=== PATIENT | female | born 1995 | race Caucasian/White ===

== ENCOUNTER 2019-07-05 10:40 | Outpatient (CLI) | payer OTHER, SELFPAY ==
--- NOTE | ~2019-07-05 | MR_ITS ---
EXAMINATION: MR pelvis wo/w con DATE: 07/05/2019 12:46 INDICATION: Severe pelvic pain. TECHNIQUE: Magnetic resonance imaging (MRI) of the pelvis was performed without and with 20 minus Mul tiHance intravenous contrast. Sequences included coronal and axial T2-weighted FS FSE, axial T1-weigh kush FS FSE, axial LAVA, coronal FS FIESTA, coronal LAVA-flex, axial T2-weighted FSE, axial dual-echo T1-weighted FSPGR, axial FS FIESTA, axial DWI, and small dgsab-mf-ustn sagittal, coronal, and axial T 2-weighted FSE. Postcontrast sequences included coronal LAVA-flex and a time course of axial LAVA. COMPARISON: CT abdomen and pelvis 09/15/2017 FINDINGS: The uterus and ovaries are normal. There are no dilated loops of bowel. There are no pathologically e nlarged lymph nodes. There is trace ascites, likely physiologic. IMPRESSION: 1. Normal pelvis. Reviewed, dictated and finalized at location A. IMPRESSION: 1. Normal pelvis.
[2019-07-05 11:50] LABS: Estimated Glomerular Filt Rate > 60
== END 2019-07-05 10:41 | disposition home or self-care (01) ==
LOC: ANHIMG 10:47
PROVIDERS: Visit Provider Obstetrics & Gynecology
DX: R10.2 Pelvic and perineal pain (principal)
CPT/HCPCS: 36415; 72197; A9577

== ENCOUNTER 2019-09-30 16:11 | Emergency (ER) | payer OTHER, SELFPAY ==
--- NOTE | ~2019-09-30 | XR_ITS ---
EXAMINATION: XR shoulder LT min 2V EXAM DATE: 09/30/2019 16:40 INDICATION: Initial encounter following injury, with pain of the left shoulder. Fell off tractor. TECHNIQUE: The following left shoulder projections obtained: frontal projection with internal rotatio n, frontal projection with external rotation, Grashey, and scapular Y view (4+ views). There is no p rior study for comparison. FINDINGS: No evidence of left shoulder rotator cuff calcific tendinosis. Unremarkable left glenohu meral and acromioclavicular joints. There are no acute fractures or dislocations identified. There i s no subcutaneous gas. The soft tissue is unremarkable. There are no radiopaque foreign bodies. IMPRESSION: No acute osseous findings. Reviewed, dictated and finalized at location B. IMPRESSION: No acute osseous findings.
[2019-09-30 16:13] VITALS: RESP 16
--- NOTE | 2019-09-30 17:10 | ED.UPPEXIN ---
HPI - Extremity Injury (Upper) General Chief Complaint: Extremity Injury, Upper Stated Complaint: dislo shoulder Time Seen by Provider: 09/30/19 16:41 Source: patient Mode of arrival: ambulatory Limitations: no limitations History of Present Illness HPI narrative: This is a 24-year-old female that presents the emergency department for left shoulder pain after an injury today. Reports she had her arm up on a wall and slipped and fell forward. Reports that arm was pushed backwards. Reports that she has had pain in the left shoulder. Reports decreased range of motion due to pain. Denies other injuries, numbness or weakness. Related Data Home Medications Medication Instructions Recorded Confirmed duloxetine mg PO 09/30/19 elagolix [Orilissa] mg 09/30/19 fluticasone furoate-vilanterol INHALATION 09/30/19 [Breo Ellipta] pantoprazole PO 09/30/19 Allergies Allergy/AdvReac Type Severity Reaction Status Date / Time No Known Allergies Allergy Verified 09/30/19 16:11 Review of Systems Review of Systems: Narrative: CONSTITUTIONAL: Denies fever MUSCULOSKELETAL: Reports joint pain, and myalgia. NEUROLOGIC: Denies numbness, or weakness. All systems reviewed & are unremarkable except as noted in HPI and below PMFSH Past Medical History Medical History (Updated 09/30/19 @ 17:15 by Stephanie Hdz PA-C) History of asthma History of depression History of endometriosis History of gastroesophageal reflux (GERD) Social History Social History Gender identity (if verbalized by the patient): Female Exam Narrative: Exam Narrative: GENERAL: Well-appearing, well-nourished, and in no acute distress. HEAD: Normocephalic, atraumatic. EYES: EOMI. EXTREMITIES: Decreased active range of motion of the left shoulder due to pain. No edema or obvious deformity. Normal sensation. Normal radial pulses SKIN: Warm, dry, no rash. NEURO: No focal deficits. Alert and oriented x3. PSYCH: Normal mood and affect Course Vital Signs Vital signs: Vital Signs Respiratory Rate 16 09/30/19 16:13 Respiratory Rate 16 09/30/19 16:13 MDM - Extremity Injury (Upper) MDM Narrative Medical decision making narrative: Patient presents the emergency department for left shoulder pain after an injury today. Left shoulder x-rays without acute findings. Patient was instructed to rest, ice and take xynt-zlm-evuxexp pain medication as needed. She is to follow-up with orthopedics. She was given warnings to return to the ER Imaging Data Radiologist's impression: ITS Impressions Shoulder X-Ray 09/30/19 16:42 IMPRESSION: No acute osseous findings. Critical Care Time Critical Care Time Critical Care Time: No Discharge Plan Discharge Clinical Impression: Acute pain of left shoulder Patient Disposition: Home, Self-Care Condition: Stable Instructions: Shoulder Sprain (ED) Additional Instructions: Return to the emergency department if you experience fever, redness and swelling of your arm, or any other symptoms that are concerning to you Rest. Ice to the area. Zwbb-cvo-vyixhyl pain medication as needed. Do gentle range of motion exercises with the shoulder daily so you do not get stiff Follow-up with orthopedics Prescriptions: No Action pantoprazole 40 mg tablet,delayed release (DR/EC) PO RF: 0 duloxetine 30 mg capsule,delayed release(DR/EC) PO RF: 0 Breo Ellipta 100-25 mcg/dose blister with device INHALATION RF: 0 Orilissa 150 mg tablet RF: 0 Follow-up/Referrals: Chivo Sanabria MD [Physician] - 1 Week PHYSICIAN,FIRE ASSISTANT [Primary Care Provider] -
== END 2019-09-30 17:39 | disposition home or self-care (01) ==
PROVIDERS: Emergency Provider Emergency Medicine
DX: M25.512 Pain in left shoulder (principal); J45.909 Unspecified asthma, uncomplicated; F32.9 Major depressive disorder, single episode, unspecified; K21.9 Gastro-esophageal reflux disease without esophagitis
CPT/HCPCS: 73030; 99283; A4565

== ENCOUNTER → 2021-02-10 11:27 | Outpatient (CLI) | payer OTHER, SELFPAY ==
--- NOTE | ~2021-02-10 | CT_ITS ---
EXAMINATION: CT abdomen pelvis wo/w con DATE: 02/10/2021 12:04 INDICATION: Hematuria TECHNIQUE: Computed tomography (CT) of the abdomen and pelvis was performed without and with 130 cc O mnipaque 350 intravenous contrast. The dose-length product was 2317.11 mGy-cm. Automated exposure con trol and iterative reconstruction technique were employed. COMPARISON: CT dated 09/15/2017. FINDINGS: There is calcified granuloma left lower lobe. Otherwise, lung bases are unremarkable. Heart size normal. No significant pleural or pericardial effusion. There is a fat-containing umbilical her tobin. No renal stones or hydronephrosis. Fatty infiltration of the liver. The spleen, pancreas, adrenal glands and kidneys are unremarkable. Gallbladder is present. There is a 3.9 cm right ovarian cyst. Ureters are normal in course and caliber. Bladder is decompressed, althou gh unremarkable. Nonobstructive bowel gas pattern. No evidence for diverticulitis. IMPRESSION: 1. Right ovarian cyst measuring 3.9 cm. 2: Hepatic steatosis. Reviewed, dictated and finalized at location A. RANCE OFFICE SUPERVISOR
== END ==
PROVIDERS: PCP Physician Assistant Medical; Visit Provider Obstetrics & Gynecology
DX: R31.9 Hematuria, unspecified (principal); N83.201 Unspecified ovarian cyst, right side; K76.0 Fatty (change of) liver, not elsewhere classified
CPT/HCPCS: 74178; Q9967

== ENCOUNTER → 2021-02-16 02:15 | Outpatient (CLI) | payer OTHER, SELFPAY ==
[2021-02-16 19:35] LABS: SARS-CoV-2 RNA PCR Negative
== END ==
PROVIDERS: PCP Physician Assistant Medical; Visit Provider Obstetrics & Gynecology
DX: Z01.812 Encounter for preprocedural laboratory examination (principal); Z20.822 Contact with and (suspected) exposure to COVID-19
CPT/HCPCS: C9803; U0003; U0005

== ENCOUNTER 2021-02-16 08:36 | Outpatient (CLI) | payer OTHER, SELFPAY | END 2021-02-16 08:37 | disposition home or self-care (01) | LOC: ANHSURGERY 08:40 | PROVIDERS: PCP Physician Assistant Medical; Visit Provider Obstetrics & Gynecology | DX: R10.2 Pelvic and perineal pain (principal) | CPT/HCPCS: 36415; 86850; 86900; 86901 ==

== ENCOUNTER 2021-02-19 02:01 | Day surgery (SDC) | payer OTHER, SELFPAY ==
[2021-02-15 14:34] VITALS: BMI 41.6
--- NOTE | 2021-02-15 14:49 | PC.NURSE ---
Report to the Outpatient Waiting Room, entrance under the green pavilion located off [facility], at time 9:30 on date 02/19/21. OR Time: 11:30. - You and your visitor will be asked a series of questions to screen for COVID 19 for your protection. - A mask is required within the hospital. - Only one visitor is allowed at this time. Patient visitors will be guided where to wait when not with patient. Preoperative COVID Testing Requirements: No COVID Test needed if: (proof is required; if not received patient will have Rapid Test prior to entry) - Patient has received COVID Vaccine at least 14 days prior to procedure date or - Patient has positive COVID test result within last 90 days of surgery date. COVID Test needed if above criteria is not met If not COVID vaccinated a COVID test must be conducted within 72 hours of surgery and patient is asked to isolate self from time of testing until procedure. You will go to the [facility] for your COVID testing. The [facility] is located at the corner of [address] [facility]. COVID TEST 02/16 AT 8:35 You will only be called if COVID results are positive and your surgeon may reschedule your elective surgery date. Patients may have clear liquids (water, carbonated beverages, clear teas, apple juice) until 3 hours prior to surgery with a maximum of 20 ounces. - No food from midnight until time of surgery - Infants may have breast milk until 4 hours before surgery, infant formula 6 hours prior to surgery. - Children will be allowed to drink immediately following surgery. If applicable, please bring a bottle or sippy cup to assist with drinking. Juice, water, soda, and popsicles are readily available. For infants on formula, please bring formula the day of surgery. Pacifiers are allowed. Take the following medications with a SIP of water the morning of surgery: N/A Medications to discontinue per physician: N/A Date to take last dose: N/A Please no make-up, nail lithuanian, hairspray, perfume, deodorant, or body powder the day of surgery. No jewelry (including any body piercings) or valuables the day of surgery, leave them at home. Please take a shower or bath the night before, or the morning of, surgery with an antibacterial soap. Wear comfortable, loose fitting clothing. Children are encouraged to wear pajamas. - Jewelry must be removed prior to entering the operating room. Rings and piercings that are not removed may be cut off. - The hospital will not accept responsibility for valuables. - Please leave all valuables, including medications, at home the day of surgery. If you are going home after surgery, a licensed tow car driver must drive you home. - NO public transportation without another adult. - We recommend that an adult stay with you for 24 hours following discharge. - We also recommend that you do not drive, make important decision, drink alcoholic beverages, or take any drugs that were not prescribed by your health care provider for at least 24 hours after your discharge time. For Pediatric surgeries, we recommend two adults accompany the child home (only one inside the building at this time). Follow any additional instructions given to you from your surgeon. Telephone instructions given to VERONA LOMELI and asked if any additional questions and then verbalized understanding. Patient advised to call surgeon office or pre surgery nurse liaison [phone] if any additional questions.
--- NOTE | 2021-02-17 09:45 | PM.IMHP ---
H&P: HPI History of Present Illness Date/Time: 02/17/21 09:45 25-year-old 0 admitted for laparoscopic right cystectomy secondary to severe pelvic pain and right ovarian cyst. The patient has history of endometriosis. She has had pain discomfort and dyspareunia. Ultrasound shows a right ovarian cyst. Hormonal manipulation has not been helpful. Risks and benefits reviewed in full Chief Complaint: Pelvic pain and right ovarian cyst Review of Systems Review of Systems: All systems reviewed & are unremarkable except as noted in HPI and below PMFSH Past Medical History Medical History History of asthma History of depression History of endometriosis History of gastroesophageal reflux (GERD) Social History Social History Smoking status: Never smoker Alcohol intake: never Substance use: current Substance use type: marijuana Other substance usage details: THC PEN AT NIGHT Last use: 02/14/21 Gender identity (if verbalized by the patient): Female Spiritual care concerns: No Meds Home Medications and Allergies Home Medications Medication Instructions Recorded Confirmed Type pantoprazole 40 mg PO DAILY 09/30/19 02/15/21 History cetirizine [Zyrtec] 10 mg PO DAILY 02/15/21 02/15/21 History citalopram 20 mg PO HS 02/15/21 02/15/21 History Allergies Allergy/AdvReac Type Severity Reaction Status Date / Time No Known Allergies Allergy Verified 02/15/21 14:33 Exam Const: General: no acute distress Eyes: General: appearance normal, both eyes and all related structures Neck: Neck: supple and no JVD Thyroid: thyroid normal Resp: Effort & Inspection: normal respiratory effort Auscultation: clear to auscultation bilaterally Cardio: Rate: regular rate Rhythm: regular rhythm GI: Inspection: non-distended GI Palp: Yes Soft to palpation, No Tenderness to palpation present (GI) and No Guarding due to palpation present (GI) Auscultation: normal bowel sounds : External Female Exam: normal external appearance Speculum Exam - Vagina: normal appearance of the vagina Speculum Exam - Cervix: Cervical os closed Bimanual exam- vagina & uterus: uterine mobility normal Bimanual Exam- Adnexa, other: adnexae mobile and Adnexal mass present on the right tender Skin: General skin exam: no rashes or lesions noted Extrem: General: normal to inspection and no edema Psych: Mental Status: mental status grossly normal Affect: normal affect Assessment and Plan Additional Plan Impression: Right ovarian cyst with severe pain Plan: Laparoscopic right ovarian cystectomy
[2021-02-19] VITALS (11 sets, daily range): BP systolic 125–148; BP diastolic 6–84; PULSE 71–103; RESP 14–20; TEMP 36.3; O2SAT 95–100
--- NOTE | 2021-02-19 07:14 | WPDHPUPDATE1 ---
History and Physical Update Update Date/Time: 02/19/21 07:14 History and Physical has been reviewed, including an updated exam of the patient. There are NO changes in the patient's condition. Risks, benefits, and alternatives have been discussed and questions answered. Patient agrees to proceed with procedure.
[2021-02-19] MEDS: SCOPOLAMINE 1.5 MG PATCH TRANSDERM (10:00)
[2021-02-19] MEDS: ACETAMINOPHEN 500 MG TABLET 1000 MG PO (10:01)
[2021-02-19] MEDS: LACTATED RINGERS 1,000 ML 30 ML IV CONT ×2 (10:07→12:30)
[2021-02-19] MEDS: KETOROLAC 15 MG/ML VIAL (*BKC) IV PUSH (10:08)
--- NOTE | 2021-02-19 10:14 | P.PNAN_ITS ---
Anes - Initial Pre Proc Eval Procedure: Operation Date: 02/19/21 11:30 Proposed Procedures p Laparoscopic Right Ovarian Cystectomy - Ariel Dave MD Date/Time: 02/19/21 10:14 Surgeon: Ariel Dave MD Pre Op Diagnosis: pelvic pain, right ovarian cyst Patient Data Age: 25 Gender: F Height: 1.73 m Weight: 122.4 kg Allergies Allergy/AdvReac Type Severity Reaction Status Date / Time No Known Allergies Allergy Verified 02/19/21 09:52 Home Medications Medication Instructions Recorded Confirmed Type pantoprazole 40 mg PO DAILY 09/30/19 02/19/21 History cetirizine [Zyrtec] 10 mg PO DAILY 02/15/21 02/19/21 History citalopram 20 mg PO HS 02/15/21 02/19/21 History hydrocodone-acetaminophen 1 tablet PO Q4H PRN #30 tablet 02/19/21 Rx Patient hx anesthesia problems: none Family hx anesthesia problems: none Results Review: All pre-operative results and documents have been reviewed as part of the pre-operative evaluation. [facility] Past Medical History Medical History (Updated 02/19/21 @ 10:14 by Ariel Dhaliwal MD) History of asthma History of depression History of endometriosis History of gastroesophageal reflux (GERD) Morbid obesity Surgical History Surgical History (Updated 02/19/21 @ 10:14 by Ariel Dhaliwal MD) H/O laparoscopy Social History Social History Smoking status: Never smoker Alcohol intake: never Substance use: current Substance use type: marijuana Other substance usage details: THC PEN AT NIGHT Last use: 02/14/21 Living arrangements: with family Gender identity (if verbalized by the patient): Female Spiritual care concerns: No Anes - Eval Final PreProcedure Day of Procedure 02/19/21 10:14 Patient weight: morbidly obese Heart: regular rate and rhythm Lungs: clear to auscultation Airway: Mallampati scale class II Neurological: alert and oriented Last oral intake: >/= 8 hours ASA classification: III Emergent: no Anesthetic plan: proceed Anesthesia type and monitoring: general ETT and standard monitoring Results Review: All pre-operative results and documents have been reviewed as part of the pre-operative evaluation. Informed Consent: The patient's anesthetic plan and its attendant risks and benefits were discussed with the patient/family/POA. Questions were solicited and answers provided to the satisfaction of the patient/family/POA.
--- NOTE | 2021-02-19 12:28 | W.PM.PROC2 ---
Procedure Note - Detailed Date of Procedure 02/19/21 Pre-op Diagnosis pelvic pain, right ovarian cyst Post-op Diagnosis same Procedure Performed Laparoscopic destruction of right ovarian cyst/lysis of adhesions Surgeon Ariel Dave MD Anesthesia general Indications A 25-year-old female with pelvic pain and right ovarian cyst on imaging Findings Pelvic adhesions. Adhesions from the uterus to the cul-de-sac. Moderate size right ovarian cyst benign in nature. Right ovary was adherent to ovarian fossa as was the left ovary. Description of Procedure The patient was prepped draped in the normal sterile fashion placed in the dorsal lithotomy position. Under excellent general trach anesthesia weighted speculum placed in posterior fornix vagina. Anterior lip of the cervix grasped with single-tooth tenaculum and the Burk's cannula inserted attached to the single-tooth. The bladder was emptied of clear urine and the weighted speculum removed. The gloves were changed An infraumbilical incision made the Veress needle passed in the abdomen. The abdomen filled with CO2 gas to 15mm Hg the 5mm trocar advanced in the abdomen the downside visualized with no injury seen. Patient placed in Trendelenburg and a suprapubic incision made. The 5mm trocar advanced under direct visualization assuring no injury. Adhesions were seen using sharp dissection this was adhesions were sharply dissected. A large right ovarian cyst was seen. This was opened in linear fashion and drained of clear fluid that ovary was adherent and the and sharp dissection was undertaken to loosen this from the ovarian fossa. Irrigation undertaken to the left ovary was within normal limits but was adherent to the left ovarian fossa and this was sharply dissected and the copious irrigation was undertaken until excellent hemostasis was seen. The remainder of the procedure was unremarkable. Lower site removed the gas removed from the abdomen. The upper site removed incisions closed with 4 Monocryl glue. The patient was taken to recovery in satisfactory condition. All sponge, needle, instrument counts were correct. There were no immediate complications Estimated Blood Loss 5 Drains No Packing No Pathology none sent Complications No immediate complications Condition stable Disposition PACU
[2021-02-19] MEDS: fentaNYL CITRATE INJ (*CRX) 100 MCG/2 ML VIAL 25 MCG IV PUSH ×6 (12:42→13:58)
[2021-02-19] MEDS: ONDANSETRON INJ 4 MG/2 ML VIAL IV PUSH (13:23)
[2021-02-19] MEDS: diphenhydrAMINE HCl INJ 50 MG/ML VIAL 25 MG IV PUSH ×2 (13:34→14:05)
[2021-02-19] MEDS: oxyCODONE HCL (*CRX) 5 MG TAB IR PO (14:33)
== END 2021-02-19 15:12 | disposition home or self-care (01) ==
PROVIDERS: PCP Physician Assistant Medical; Visit Provider Obstetrics & Gynecology
PROC: (CPT 49320; principal; 2021-02-19 11:30)
DX: N83.201 Unspecified ovarian cyst, right side (principal); K66.0 Peritoneal adhesions (postprocedural) (postinfection); R10.2 Pelvic and perineal pain; J45.909 Unspecified asthma, uncomplicated; F32.9 Major depressive disorder, single episode, unspecified; N80.9 Endometriosis, unspecified; K21.9 Gastro-esophageal reflux disease without esophagitis; F12.90 Cannabis use, unspecified, uncomplicated; E66.01 Morbid (severe) obesity due to excess calories; Z68.41 Body mass index [BMI] 40.0-44.9, adult; N94.10 Unspecified dyspareunia
CPT/HCPCS: 58662; 36415; 86850; 86900; 86901; A9270; C9803; J0330; J1100; J1200; J1885; J2250; J2405; J2704; J3010; J7120; U0003; U0005

== ENCOUNTER 2021-05-21 08:36 | Outpatient (CLI) | payer OTHER, SELFPAY ==
--- NOTE | ~2021-05-21 | US_ITS ---
EXAMINATION: US abdomen limited DATE: 05/21/2021 09:22 INDICATION: Right upper quadrant pain TECHNIQUE: Multiple grayscale and Doppler ultrasound images of the abdomen were obtained. COMPARISON: CT, 02/11/2020 FINDINGS: Bowel gas obscures visualization of the pancreas. The visualized portions of the pancreas a re unremarkable. The liver demonstrates increased echogenicity, heterogenous echotexture, and decreas ed through transmission. No surface nodularity. Normal hepatopetal flow in the main portal vein. Ston es are present in the nondistended gallbladder. There is no pericholecystic fluid or gallbladder wall thickening. The normal common bile duct measures 4 mm. There was no sonographic Robertson sign. IMPRESSION: 1. Cholelithiasis without evidence of cholecystitis. Reviewed, dictated and finalized at location A. GRAPHY TECHNOLOGIST
== END 2021-05-21 08:37 | disposition home or self-care (01) ==
LOC: ANHIMG 08:39
PROVIDERS: PCP Physician Assistant Medical
DX: R10.10 Upper abdominal pain, unspecified (principal); K80.20 Calculus of gallbladder without cholecystitis without obstruction
CPT/HCPCS: 76705

== ENCOUNTER 2021-10-05 14:46 | Outpatient (CLI) | payer OTHER, SELFPAY ==
--- NOTE | 2021-10-05 | ECG_ITS ---
Measurements Intervals [place] Rate: 64 P: -1 [place]: 146 QRS: 17 QRSD: 98 T: -15 QT: 412 QTc: 426 Interpretive Statements SINUS RHYTHM BORDERLINE ST-T WAVE ABNORMALITY- INFERIOR LEADS BORDERLINE ECG Electronically Signed On 10-05-2021 15:09:51 CDT by Rachid Haley D.O.
== END 2021-10-05 14:47 | disposition home or self-care (01) ==
LOC: ANHCARD 14:48
PROVIDERS: PCP Physician Assistant Medical; Visit Provider Obstetrics & Gynecology
DX: R55 Syncope and collapse (principal)
CPT/HCPCS: 93005

== ENCOUNTER 2021-11-26 01:42 | Day surgery (SDC) | payer OTHER, SELFPAY ==
[2021-11-23 13:10] VITALS: BMI 26.4
--- NOTE | 2021-11-23 13:22 | PC.NURSE ---
Report to the Outpatient Waiting Room, entrance under the green pavilion located off [facility], at time 1100 on date 11/26/21. OR Time: 1300. - You and your visitor will be asked to self-screen and do not enter if you have any COVID symptoms. - Only one visitor and NO children visitors are allowed at this time. - The patient visitor is requested to leave or wait in car when not with patient due to restrictions. - A mask is required within the hospital. Patients may have clear liquids (water, carbonated beverages, clear teas, apple juice) until 3 hours prior to surgery with a maximum of 20 ounces. - No food from midnight until time of surgery Take the following medications with a SIP of water the morning of surgery: PAIN PILL (IF NEEDED) Medications to discontinue per physician: N/A Date to take last dose: N/A Please no make-up, nail israeli, hairspray, perfume, deodorant, or body powder the day of surgery. No jewelry (including any body piercings) or valuables the day of surgery, leave them at home. Please take a shower or bath the night before, or the morning of, surgery with an antibacterial soap. Wear comfortable, loose fitting clothing. - Jewelry must be removed prior to entering the operating room. Rings and piercings that are not removed may be cut off. - The hospital will not accept responsibility for valuables. - Please leave all valuables, including medications, at home the day of surgery. If you are going home after surgery, a licensed cpr ambulance driver must drive you home. - NO public transportation without another adult. - We recommend that an adult stay with you for 24 hours following discharge. - We also recommend that you do not drive, make important decision, drink alcoholic beverages, or take any drugs that were not prescribed by your health care provider for at least 24 hours after your discharge time. Follow any additional instructions given to you from your surgeon. If you or anyone in your household have experienced Covid symptoms in the past week, please notify your surgeon or the nurse liaison at the phone number below for possible testing. Telephone instructions given to PT - VERONA LOMELI and asked if any additional questions and then verbalized understanding. Patient advised to call surgeon office or pre surgery nurse liaison [phone] if any additional questions.
--- NOTE | 2021-11-25 11:31 | P.PNAN_ITS ---
Anes - Initial Pre Proc Eval Procedure: Operation Date: 11/26/21 13:00 Proposed Procedures p Diagnostic Laparoscopy - Ariel Ledbetter MD Date/Time: 11/25/21 11:31 Surgeon: Ariel Ledbetter MD Pre Op Diagnosis: pain Patient Data Age: 26 Gender: F Height: 1.73 m Weight: 78.93 kg Allergies Allergy/AdvReac Type Severity Reaction Status Date / Time adhesive tape AdvReac Mild Itching Verified 11/26/21 11:24 Home Medications Medication Instructions Recorded Confirmed Type cetirizine 10 mg tablet (Zyrtec) 10 mg PO DAILY 02/15/21 11/26/21 History citalopram 20 mg tablet 20 mg PO HS 02/15/21 11/26/21 History hydrocodone 5 mg-acetaminophen 325 1 tablet PO Q4H PRN pain #30 tabs 02/19/21 11/23/21 Rx mg tablet etonogestrel 0.12 mg-ethinyl 1 vag ring vaginal ONCE 11/23/21 11/23/21 History estradiol 0.015 mg/24 hr vaginal ring pantoprazole 20 mg tablet,delayed 20 mg PO DAILY 11/23/21 11/26/21 History release hydrocodone 5 mg-acetaminophen 325 1 tablet PO Q4H PRN pain #30 tabs 11/26/21 Rx mg tablet Patient hx anesthesia problems: post op nausea/vomiting Family hx anesthesia problems: none Results Review: All pre-operative results and documents have been reviewed as part of the pre- operative evaluation. [facility] Past Medical History Medical History History of asthma History of depression History of endometriosis History of gastroesophageal reflux (GERD) Morbid obesity Surgical History Surgical History H/O laparoscopy History of sleeve gastrectomy History of tonsillectomy Social History Social History Smoking status: Never smoker Alcohol intake: never Substance use: current Substance use type: marijuana Other substance usage details: THC PEN AT NIGHT Last use: 02/14/21 Living arrangements: with family Additional living arrangements comments: [facility] Gender identity (if verbalized by the patient): Female Spiritual care concerns: No Anes - Eval Final PreProcedure Day of Procedure 11/25/21 11:31 Patient weight: overweight Heart: regular rate and rhythm Lungs: clear to auscultation Airway: Mallampati scale class 1 Neurological: alert and oriented Last oral intake: >/= 8 hours ASA classification: III Emergent: no Anesthetic plan: proceed Anesthesia type and monitoring: general ETT and standard monitoring Results Review: All pre-operative results and documents have been reviewed as part of the pre- operative evaluation. Informed Consent: The patient's anesthetic plan and its attendant risks and benefits were discussed with the patient/family/POA. Questions were solicited and answers provided to the satisfaction of the patient/family/POA.
[2021-11-26] VITALS (11 sets, daily range): BP systolic 110–125; BP diastolic 55–71; PULSE 59–93; RESP 14–24; TEMP 36.2–36.5; O2SAT 97–100
--- NOTE | 2021-11-26 04:41 | PM.IMHP ---
H&P: HPI History of Present Illness Date/Time: 11/26/21 04:41 Chief Complaint: pelvic pain Narrative: a 26-year-old female with known endometriosis admitted for diagnostic laparoscopy destruction of endometriosis. [facility] Past Medical History Medical History History of asthma History of depression History of endometriosis History of gastroesophageal reflux (GERD) Morbid obesity Surgical History Surgical History H/O laparoscopy History of sleeve gastrectomy History of tonsillectomy Social History Social History Smoking status: Never smoker Alcohol intake: never Substance use: current Substance use type: marijuana Other substance usage details: THC PEN AT NIGHT Last use: 02/14/21 Living arrangements: with family Additional living arrangements comments: [facility] Gender identity (if verbalized by the patient): Female Spiritual care concerns: No Meds Home Medications and Allergies Home Medications Medication Instructions Recorded Confirmed Type cetirizine 10 mg tablet (Zyrtec) 10 mg PO DAILY 02/15/21 11/23/21 History citalopram 20 mg tablet 20 mg PO HS 02/15/21 11/23/21 History hydrocodone 5 mg-acetaminophen 325 1 tablet PO Q4H PRN pain #30 tabs 02/19/21 11/23/21 Rx mg tablet etonogestrel 0.12 mg-ethinyl 1 vag ring vaginal ONCE 11/23/21 11/23/21 History estradiol 0.015 mg/24 hr vaginal ring pantoprazole 20 mg tablet,delayed 20 mg PO DAILY 11/23/21 11/23/21 History release Allergies Allergy/AdvReac Type Severity Reaction Status Date / Time adhesive tape AdvReac Itching Verified 11/23/21 13:18 Exam Const: General: cooperative, healthy appearing and comfortable Nutritional Appearance: average body habitus Limitations: no limitations HENMT: Head: normal to inspection Chest: Chest palpation & inspection: normal inspection of the chest Resp: Effort & Inspection: normal respiratory effort Cardio: Rate: regular rate Rhythm: regular rhythm Heart sounds: S1 normal heart sound present and S2 normal heart sound present GI: Inspection: normal to inspection : External Female Exam: normal external appearance Speculum Exam - Vagina: normal appearance of the vagina Speculum Exam - Cervix: normal appearance of the cervix and Cervical tenderness present Bimanual exam- vagina & uterus: Uterine tenderness Bimanual Exam- Adnexa, other: tender Assessment and Plan Assessment and plan (1) Pelvic pain: Code(s): R10.2 - Pelvic and perineal pain Status: Acute Plan diagnostic laparoscopy
[2021-11-26] MEDS: LACTATED RINGERS 1,000 ML 30 ML IV CONT ×2 (11:35→13:58)
[2021-11-26] MEDS: ACETAMINOPHEN 500 MG TABLET 1000 MG PO (11:47)
[2021-11-26] MEDS: SCOPOLAMINE 1.5 MG PATCH TRANSDERM (11:49)
[2021-11-26] MEDS: KETOROLAC 15 MG/ML VIAL (*BKC) IV PUSH (11:50)
--- NOTE | 2021-11-26 12:54 | WPDHPUPDATE1 ---
History and Physical Update Update Date/Time: 11/26/21 12:54 History and Physical has been reviewed, including an updated exam of the patient. There are NO changes in the patient's condition. Risks, benefits, and alternatives have been discussed and questions answered. Patient agrees to proceed with procedure.
--- NOTE | 2021-11-26 12:55 | WPDHPUPDATE1 ---
History and Physical Update Update Date/Time: 11/26/21 12:55 History and Physical has been reviewed, including an updated exam of the patient. There are NO changes in the patient's condition. Risks, benefits, and alternatives have been discussed and questions answered. Patient agrees to proceed with procedure.
--- NOTE | 2021-11-26 13:37 | P.OP_ITS ---
Procedure Note - Detailed Date of Procedure 11/26/21 Pre-op Diagnosis pain Post-op Diagnosis Other (Endometriosis and adhesions) Procedure Performed laparoscopic destruction of endometriosis and lysis of adhesions Surgeon Ariel Ledbetter MD Anesthesia General Indications this 26-year-old female with severe pelvic pain Findings normal-appearing uterus left ovary and tube. Right ovary was markedly adherent to the ovarian fossa with a small amount of endometriosis present causing this thick adhesion. There uterosacral ligament contained powder burn endometriosis. There is a small amount of endometriosis on the left uterosacral ligament Description of Procedure patient was prepped draped in the normal sterile fashion placed in the dorsal lithotomy position. Under excellent general trach anesthesia weighted speculum placed in posterior fornix vagina. Anterior lip of the cervix grasped with a single-tooth tenaculum and the Burk's cannula inserted attached to the single- tooth to be used later for uterine manipulation. After emptying the bladder of clear urine the weighted speculum was removed. Gloves were changed. An infraumbilical incision made the Veress needle passed in the abdomen. Abdomen filled with CO2 gas 15mmHg. The 5mm trocar advanced under direct visualization assuring no injury. The patient placed in Trendelenburg and a suprapubic incision made. The 5mm trocar advanced under direct visualization injury. Incision the right lower quadrant incision was made and the 5mm trocar advanced under direct visualization assuring no injury. The above findings were seen irrigation was undertaken the area of endometriosis on the you right uterosacral was cauterized at 35 w per 2nd. The right ovary was markedly adherent to the ovarian fossa holding with 1 hand and using monopolar cautery was brought along the edge of the ovary to release it and the endometriosis on that ovary was destroyed with monopolar cautery. Irrigation undertaken to clear the remainder of the pelvis appeared within normal limits. The lower site removed. The gas removed from the abdomen. The upper site removed. The incisions closed with 4 Monocryl and glue. Patient went to recovery in satisfactory condition. All sponge, needle, instrument counts were correct. There were no immediate complications Estimated Blood Loss 5 Drains No Packing No Pathology None sent Complications No immediate complications Condition Stable Disposition PACU
[2021-11-26] MEDS: fentaNYL CITRATE INJ (*CRX) 100 MCG/2 ML VIAL 25 MCG IV PUSH ×8 (13:53→14:30)
[2021-11-26] MEDS: ONDANSETRON INJ 4 MG/2 ML VIAL IV PUSH (14:17)
[2021-11-26] MEDS: diphenhydrAMINE HCl INJ 50 MG/ML VIAL 25 MG IV PUSH (14:47)
[2021-11-26] MEDS: HALOPERIDOL LACTATE 5 MG/ML VIAL 1 MG IV PUSH (15:23)
== END 2021-11-26 16:15 | disposition home or self-care (01) ==
PROVIDERS: PCP Physician Assistant Medical; Visit Provider Obstetrics & Gynecology
PROC: (CPT 49320; principal; 2021-11-26 13:00)
DX: R10.2 Pelvic and perineal pain (principal); N80.1 Endometriosis of ovary; N80.3 Endometriosis of pelvic peritoneum; F32.A Depression, unspecified; J45.909 Unspecified asthma, uncomplicated; K21.9 Gastro-esophageal reflux disease without esophagitis; F12.90 Cannabis use, unspecified, uncomplicated
CPT/HCPCS: 58662; 36415; 86850; 86900; 86901; A9270; J0330; J1200; J1630; J1885; J2250; J2270; J2405; J2704; J3010; J7120

== ENCOUNTER 2022-05-24 09:15 | Outpatient (RCR) | payer OTHER, SELFPAY ==
--- NOTE | 2022-03-03 15:58 | PTOPDC ---
Assessment and note entered by Merlin Sommers, PT Evaluation Information Assessment Status Evaluation Diagnosis dizziness and giddiness Onset September/October of this year Subjective Information Patient reports she is dizzy constantly and has been since November. She reports having loss of consciousness a few weeks before her symptoms started. She has not had any falls, but does report close calls. She is on Meclizine which she takes 1 time a day and that helps she reports. She is a side sleeper and reports symptoms are worse when turning head from side to side, or up and down, or anything with quick movements. Along with dizziness she has ringing in her ears, headaches, migraines, nausea/vomiting. Denies any recent ear infections and has recently seen an ENT doctor. Reported Pain Level Pain Score 3: Self Report Assessment PT Clinical Summary Odessa is a 26 year old female coming into the clinic with dizziness. She reports issues with quick turns especially side to side and up and down, has had close calls on falls. Along with dizziness is having migraines and ringing in the ears. Unable to elicit nystagmus with test, but did have increased dizziness with VOR, vertical and horizontal turns with walking, along with eyes closed balance issues. Patient should benefit from skilled physical therapy to work on habituation exercises to improve vestibular and visual coordination along with manual therapy if needed for acute BPPV episodes. Plan of Care Interventions Manual Therapy,Neuro Re-education,Therapeutic Activities,Therapeutic Exercise PT Services Indicated Yes Treatment Frequency and 1x/wk for 4 weeks with PRN for Jameson maneuvers Duration
--- NOTE | 2022-03-16 09:33 | PCPTNOTE ---
pt did not show for today's appt, called pt and left a voice mail message, with reminder of next appt;
--- NOTE | 2022-04-25 09:57 | PCPTNOTE ---
Patient called & cancelled scheduled appointment this date due to not feeling well.
--- NOTE | 2022-05-03 09:52 | PTOPPROG ---
Assessment and note entered by Valerie Shaw, PT Evaluation Information Assessment Status Progress Diagnosis dizziness and giddiness Onset September/October of this year Subjective Information Odessa reports: was getting little better, then flew last weekend- head and ears hurt whole time, vomiting and super tired and dizzy since then; right now, head feels like little headache across forehead synagogue-synagogue; room is not spinning, just fluttering; had migraine last week for several days, then lessened up; after last session, had maneuver and was a little better, then flew and was worse; increase s/s: moving too fast lying down to sitting up and standing up too fast; bright lights and bright with snow reflection; pain rating of 0-8/10 headache/migraine. Assessment PT Clinical Summary Odessa has received 5 PT sessions. Compared to the initial evaluation: she continues to have issues with dizziness and headaches/ migraines; with trigger of bright lights; dizziness report has decreased slightly; headache pain rating about the same at worst rating; driving and activity level remains limited due to dizziness and headaches. She continues to have issues with quick head motions and supine/sit /stand transfers. And head motions horizontal and vertical. She has poor neck and shoulder positioning with painful cervical ROM. Goals were not achieved. Continue PT treatment for vestibular rehab and include cervical treatment to address cervicogenic dizziness and migraines as source of dizziness issues. Plan of Care Interventions Electrical Stimulation,Hot Pack/Cold Pack,Manual Therapy,Patient/Caregiver Education,Therapeutic Activities,Therapeutic Exercise,Ultrasound,Other Other Interventions taping PT Services Indicated Yes Treatment Frequency and 2x/wk for 5 weeks Duration These treatments will address the objective and functional deficits as defined above. The patient will be advanced safely and appropriately in order for the patient to progress towards his/her prior level of function. Additional exercises will be introduced and as well as a comprehensive home exercise program upon discharge, if needed, ?to ensure carryover of functional gains achieved in the clinic. This treatment plan has been reviewed and agreement upon by the patient
--- NOTE | 2022-05-13 11:19 | PCPTNOTE ---
Patient called & cancelled scheduled appointment this date due to being sick.
--- NOTE | 2022-05-19 13:41 | PCPTNOTE ---
Patient called & cancelled scheduled appointment this date due to illness.
--- NOTE | 2022-05-26 10:27 | PCPTNOTE ---
Patient called & cancelled scheduled appointment this date due to not being able to make it today.
--- NOTE | 2022-05-27 12:57 | PCPTNOTE ---
This treatment is being continued from visit number [id number]. Please see documentation on both accounts to view progress. Completed interventions, outcomes, and problems have been marked as Inactive to facilitate the copying of the Care plan routine for recurring accounts.
== END 2022-05-27 11:32 | disposition home or self-care (01) ==
LOC: ANHPT 09:15
PROVIDERS: PCP Physician Assistant Medical; Visit Provider Physician Assistant Medical
DX: R42 Dizziness and giddiness (principal)
CPT/HCPCS: 97014; 97110; 97140; 97161; 97530; G0283

== ENCOUNTER 2022-06-10 10:40 | Outpatient (CLI) | payer OTHER, SELFPAY ==
--- NOTE | ~2022-06-10 | MR_ITS ---
MRI of the brain Clinical History: Headache, speech deficit Technique: Axial and sagittal T1-weighted images were acquired. These were followed by axial T2-weigh kush, diffusion weighted, gradient, and FLAIR images. Findings: No abnormal signal seen in the brain parenchyma. No acute infarct, intracranial hemorrhage, or mass lesion. Ventricles and subarachnoid spaces are unremarkable. Orbits are unremarkable. Paranasal sinuses and m astoid air cells are clear. Major intracranial flow voids are intact. Sagittal midline structures are intact. IMPRESSION: Unremarkable exam. Reviewed, dictated and finalized at location M. INSPECTOR IMPRESSION: Unremarkable exam.
== END 2022-06-10 10:41 ==
PROVIDERS: PCP Physician Assistant Medical; Visit Provider Nurse Practitioner Family
DX: R47.9 Unspecified speech disturbances (principal); R42 Dizziness and giddiness; R20.2 Paresthesia of skin; R20.0 Anesthesia of skin; G43.909 Migraine, unspecified, not intractable, without status migrainosus
CPT/HCPCS: 70551

== ENCOUNTER 2022-08-04 12:30 | Outpatient (RCR) | payer OTHER, SELFPAY ==
--- NOTE | 2022-05-27 13:00 | PCPTNOTE ---
This treatment is being continued from visit number [id number]. Please see documentation on both accounts to view progress. Completed interventions, outcomes, and problems have been marked as Inactive to facilitate the copying of the Care plan routine for recurring accounts.
--- NOTE | 2022-06-02 12:32 | PCPTNOTE ---
pt did not show for today's appt; called and left her a message with reminder of next appt;
--- NOTE | 2022-06-07 10:42 | PTOPPROG ---
Assessment and note entered by Valerie Shaw, PT Evaluation Information Assessment Status Progress Diagnosis dizziness and giddiness Onset September/October of this year Subjective Information Odessa reports: dizziness feel like the same, room spinning is the same, not able to relate to anything that changes it; still not driving and still not working; to have phone conference with general sweeney next week; have been going to the chiropractor 2x/wk for neck adjustments; concerned that she is having more tingling in her hands the past few weeks, dropping her phone; and has had 5-6 times of her speech jumbled up like dyslexia; Pain range of 4-8/10 in past week, tight in both sides of neck; pain increase with: cannot think of anything that causes more pain; decrease pain with heat/ice, therapy massage; have headaches from holiness to holiness, had 1 in the past week, onset with loud music; started topamax for migraines 2 weeks ago, which may be helping the headaches; Assessment PT Clinical Summary Odessa has received a total of 10 PT sessions. Compared to the last reevaluation: continues to have dizziness with positional changes and walking with head motions; pain rating at the high rating is the same 8/10 and the low rating is worst, was 0/10 and now 4/10; headaches are less has more tingling in her hands and has had recent incidents of jumbled speech. slight increase in scapular strength and posture correction; She has also been going to the chiropractor for adjustments , discussed with her doing either PT or chiropractor, but not both at once; Odessa agreed to try PT only. Also discussed possible need for further imaging of cervical spine. She has a follow up appt and will discuss with her provider. The PT goals were partially achieved. Continue PT treatment, to further reduce cervical pain and headaches, improve posture and decrease spasms. With progression of HEP. Plan of Care Interventions Electrical Stimulation,Hot Pack/Cold Pack,Manual Therapy,Mechanical Traction,Patient/Caregiver Education,Therapeutic Activities,
--- NOTE | 2022-06-30 15:10 | PCPTNOTE ---
Patient called & cancelled scheduled appointment this date due to not feeling well.
--- NOTE | 2022-07-05 11:58 | PTOPPROG ---
Assessment and note entered by Valerie Shaw, PT Evaluation Information Assessment Status Progress Diagnosis dizziness and giddiness, neck pain Onset of this year Subjective Information Odessa reports: going to see neurologist on July 21; brain MRI did not show anything; feels like she is about the same; is driving some- 2-3 miles ; no longer going to chiropractor; continues to have dizziness every day, comes and goes--spinning , no pattern noted; have not had any tingling in her hands lately; had loss of vision ~ 20 min, few days ago when bending over and cleaning; saw the eye dr and she was told everything looked good and does not need glasses; Assessment PT Clinical Summary Odessa has received a total of 15 PT sessions. Compared to the last reevaluation: neck pain rating at low and high have improved: was 4-8/10 and now 0-5/10; have increased from 1 to 2 headaches/week; she no longer has tingling into her hands; has started driving short distances; posture and scapular strength is about the same-- continues to have rounded posture with forward head; cervical rotation R/L and side bend R/L continue to cause pain; she continues to have dizziness with positional changes and walking with head motions. Odessa has a home exercise program and does have some pain relieft with PT treatments. She has a neurology appointment in few weeks. Continue PT treatments for further pain decrease of neck and additional vestibular rehab. Plan of Care Interventions Hot Pack/Cold Pack,Manual Therapy,Neuro Re- education,Patient/Caregiver Education,Therapeutic Activities,Therapeutic Exercise,Ultrasound,Other Other Interventions taping PT Services Indicated Yes Treatment Frequency and 1-2x/wk for 5 weeks Duration These treatments will address the objective and functional deficits as defined above. The patient will be advanced safely and appropriately in order for the patient to progress towards his/her prior level of function. Additional exercises will be introduced and as well as a comprehensive home exercise program upon discharge, if needed, ?to ensure carryover of functional gains achieved in the clinic. This treatment plan has been reviewed and agreement upon by the patient.
--- NOTE | 2022-07-18 15:22 | PCPTNOTE ---
Patient called & cancelled scheduled appointment this date due to having to go to a .
--- NOTE | 2022-07-20 14:36 | PCPTNOTE ---
Patient called & cancelled scheduled appointment this date due to having a head cold.
--- NOTE | 2022-07-28 13:00 | PCPTNOTE ---
Patient called & cancelled scheduled appointment this date due to not feeling well.
--- NOTE | 2022-08-02 14:21 | PCPTNOTE ---
Patient called & cancelled scheduled appointment this date due to not being able to make it today.
--- NOTE | 2022-08-09 11:59 | PCPTNOTE ---
pt called and canceled reeval due to having a migraine.
--- NOTE | 2022-08-25 15:54 | PCPTNOTE ---
pt did not show for today's reeval; called her and left voice message;
--- NOTE | 2022-09-08 09:12 | PCPTNOTE ---
PHYSICAL THERAPY DISCHARGE 09-08-22 Attending Provider: Tersea Rodriguez PA-C Patient:Odessa Faye Date of :1995 Patient has not returned for any further treatments since 08/04/2022, therefore she will be discharged at this time. The goals were not addressed. Thank you for referring this patient to [facility].
== END 2022-08-29 23:59 | disposition home or self-care (01) ==
LOC: ANHPT 12:30
PROVIDERS: PCP Physician Assistant Medical; Visit Provider Physician Assistant Medical
DX: R42 Dizziness and giddiness (principal)
CPT/HCPCS: 97014; 97110; 97140; 97530; 99199; G0283

== ENCOUNTER 2022-10-11 10:23 | Outpatient (CLI) | payer OTHER, SELFPAY ==
[2022-10-11 11:06] LABS: Hematocrit 40.5 % (37.0-47.0); Hemoglobin 13.2 g/dL (12.0-15.0)
== END 2022-10-11 10:24 | disposition home or self-care (01) ==
LOC: ANHSURGERY 10:31
PROVIDERS: Anesthesiology; PCP Physician Assistant Medical; Visit Provider Obstetrics & Gynecology
DX: Z01.818 Encounter for other preprocedural examination (principal); Z87.42 Personal history of other diseases of the female genital tract; D64.9 Anemia, unspecified
CPT/HCPCS: 36415; 85014; 85018; 86850; 86900; 86901

== ENCOUNTER 2022-10-12 00:16 | Day surgery (SDC) | payer OTHER, SELFPAY ==
[2022-10-07 08:36] VITALS: BMI 26.1
--- NOTE | 2022-10-07 08:42 | PC.NURSE ---
Report to the Outpatient Waiting Room, entrance under the green pavilion located off [facility], at time 6:00 on date 10/12/22. Planned Procedure Time: 7:30. Time changes happen often and if your time is changed the preop area will call you the afternoon before. - You and your visitor will be asked to self-screen and do not enter if you have any COVID symptoms. - A mask is optional within the hospital at this time. Patients may have clear liquids (water, carbonated beverages, clear teas, apple juice) until 3 hours prior to surgery (4:30) with a maximum of 20 ounces. - No food from midnight until time of surgery Take the following medications with a SIP of water the morning of surgery: NONE DO NOT STOP ANY OF YOUR OTHER PRESCRIPTION MEDICATIONS PRIOR TO SURGERY ?EXCEPT THE FOLLOWING Medications to discontinue per physician: VITAMINS/SUPPLEMENTS Date to take last dose: 10/08/22 Please no make-up, nail cambodian, hairspray, perfume, deodorant, or body powder the day of surgery. No jewelry (including any body piercings) or valuables the day of surgery, leave them at home. Please take a shower or bath the night before, or the morning of, surgery with an antibacterial soap. Wear comfortable, loose fitting clothing. - Jewelry must be removed prior to entering the operating room. Rings and piercings that are not removed may be cut off. - The hospital will not accept responsibility for valuables. - Please leave all valuables, including medications, at home the day of surgery. If you are going home after surgery, a licensed minibus driver must drive you home. - NO public transportation without another adult if you receive anesthesia. - We recommend that an adult stay with you for 24 hours following discharge. - We also recommend that you do not drive, make important decision, drink alcoholic beverages, or take any drugs that were not prescribed by your health care provider for at least 24 hours after your discharge time. Follow any additional instructions given to you from your surgeon. If you or anyone in your household have experienced Covid symptoms in the past week, please notify your surgeon or the nurse liaison at the phone number below for possible testing. Telephone instructions given to PT - VERONA LOMELI and asked if any additional questions and then verbalized understanding. Patient advised to call surgeon office or pre surgery nurse liaison [phone] if any additional questions.
--- NOTE | 2022-10-11 05:46 | PM.IMHP ---
H&P: HPI History of Present Illness Date/Time: 10/11/22 05:46 Chief Complaint: pelvic pain with history of endometriosis Narrative: this is a 27-year-old 0 who is admitted for diagnostic laparoscopy secondary to severe pelvic pain. She has a known history of endometriosis. Endometriosis is expected. Risks benefits of laparoscopy reviewed including but not exclusive of , aspiration, bleeding, transfusion, perforation injury to bowel, bladder, ureters, or other internal organs with need for laparotomy. She received the [facility] handout entitled laparoscopy. She had all questions answered and asked to proceed PMFSH Past Medical History Medical History ADD (attention deficit disorder) Anemia History of asthma History of depression History of endometriosis History of gastroesophageal reflux (GERD) History of ovarian cyst Iron deficiency anemia Migraine Morbid obesity Pyloric stenosis Vitamin B12 deficiency Vitamin D deficiency Surgical History Surgical History H/O laparoscopy History of sleeve gastrectomy History of tonsillectomy Social History Social History Smoking status: Never smoker Alcohol intake: current Alcohol use details: VERY RARE Substance use: current Substance use type: marijuana Other substance usage details: THC PEN AT NIGHT for anxiety Last use: 02/14/21 Lack of Transportation: No Lack of Food: Never True Current Housing: I Have Housing Concerned About Future Housing: No Difficulty Paying Gas/Electric Bills: No Difficulty Paying for Meds: No Currently Unemployed: No Education: Associate Degree Difficulty w/ Childcare or Family Care: No Living arrangements: with family Additional living arrangements comments: [facility] Occupation/Education: occupation Gender identity (if verbalized by the patient): Female Spiritual care concerns: No Meds Home Medications and Allergies Home Medications Medication Instructions Recorded Confirmed Type cetirizine 10 mg tablet (Zyrtec) 10 mg PO DAILY PRN Allergy Symptoms 02/15/21 10/07/22 History etonogestrel 0.12 mg-ethinyl 1 vag ring vaginal ONCE 11/23/21 10/07/22 History estradiol 0.015 mg/24 hr vaginal ring cholecalciferol (vitamin D3) 50 50 mcg PO DAILY 02/08/22 10/07/22 History mcg (2,000 unit) capsule cyanocobalamin (vitamin B-12) 500 500 mcg PO DAILY 02/08/22 10/07/22 History mcg chewable tablet multivitamin-minerals no.55 1 tablet PO DAILY 02/08/22 10/07/22 History ferrous sulfate 325 mg (65 mg 325 mg PO BID #180 tabs 04/11/22 10/07/22 Rx iron) tablet (Iron (ferrous sulfate)) pantoprazole 20 mg tablet,delayed 20 mg PO QAM #90 tabs 04/11/22 10/07/22 Rx release meclizine 25 mg tablet 25 mg PO TID PRN dizziness #20 tabs 04/14/22 10/07/22 Rx amitriptyline 50 mg tablet 50 mg PO QHS #90 tabs 07/11/22 10/07/22 Rx citalopram 20 mg tablet 20 mg PO HS #90 tabs 07/11/22 10/07/22 Rx atogepant 60 mg tablet (Qulipta) 60 mg PO DAILY #30 tabs 07/21/22 10/07/22 Rx sumatriptan succinate 100 mg 100 mg PO ONCE PRN migraine 07/21/22 10/07/22 Rx tablet (Imitrex) headache #9 tabs Allergies Allergy/AdvReac Type Severity Reaction Status Date / Time tramadol AdvReac Severe Palpitation Verified 10/07/22 08:34 s adhesive tape AdvReac Mild Itching Verified 10/07/22 08:34 Exam Const: General: cooperative, healthy appearing, comfortable and average body habitus Orientation/consciousness: oriented to person, oriented to place and oriented to time HENMT: Head: normal to inspection Resp: Effort & Inspection: normal respiratory effort Cardio: Rate: regular rate Rhythm: regular rhythm Heart sounds: S1 normal heart sound present and S2 normal heart sound present GI: Inspection: normal to inspection Auscultation: normal bowel sounds
[2022-10-12] VITALS (10 sets, daily range): BP systolic 110–125; BP diastolic 62–76; PULSE 55–94; RESP 12–20; TEMP 36.4–36.9; O2SAT 98–100
--- NOTE | 2022-10-12 05:57 | WPDHPUPDATE1 ---
History and Physical Update Update Date/Time: 10/12/22 05:57 History and Physical has been reviewed, including an updated exam of the patient. There are NO changes in the patient's condition. Risks, benefits, and alternatives have been discussed and questions answered. Patient agrees to proceed with procedure.
[2022-10-12] MEDS: ACETAMINOPHEN 500 MG TABLET 1000 MG PO (06:36)
[2022-10-12] MEDS: LACTATED RINGERS 1,000 ML 30 ML IV CONT ×2 (06:43→09:06)
[2022-10-12] MEDS: KETOROLAC 15 MG/ML VIAL (*BKC) IV PUSH (06:45)
--- NOTE | 2022-10-12 06:48 | WPDANESEPPF ---
Anes - Initial Pre Proc Eval Procedure: Operation Date: 10/12/22 07:30 Proposed Procedures p Diagnostic Laparoscopy - Ariel Ledbetter MD Date/Time: 10/12/22 06:48 Surgeon: Ariel Ledbetter MD Pre Op Diagnosis: Pelvic Pain, Hx of Endomet Patient Data Age: 27 Gender: F Height: 1.73 m Weight: 78 kg Allergies Allergy/AdvReac Type Severity Reaction Status Date / Time tramadol AdvReac Severe Palpitation Verified 10/12/22 06:34 s adhesive tape AdvReac Mild Itching Verified 10/12/22 06:34 Home Medications Medication Instructions Recorded Confirmed Type cetirizine 10 mg tablet (Zyrtec) 10 mg PO DAILY PRN Allergy Symptoms 02/15/21 10/12/22 History etonogestrel 0.12 mg-ethinyl 1 vag ring vaginal ONCE 11/23/21 10/07/22 History estradiol 0.015 mg/24 hr vaginal ring cholecalciferol (vitamin D3) 50 50 mcg PO DAILY 02/08/22 10/12/22 History mcg (2,000 unit) capsule cyanocobalamin (vitamin B-12) 500 500 mcg PO DAILY 02/08/22 10/12/22 History mcg chewable tablet multivitamin-minerals no.55 1 tablet PO DAILY 02/08/22 10/12/22 History ferrous sulfate 325 mg (65 mg 325 mg PO BID #180 tabs 04/11/22 10/12/22 Rx iron) tablet (Iron (ferrous sulfate)) pantoprazole 20 mg tablet,delayed 20 mg PO QAM #90 tabs 04/11/22 10/12/22 Rx release meclizine 25 mg tablet 25 mg PO TID PRN dizziness #20 tabs 04/14/22 10/12/22 Rx amitriptyline 50 mg tablet 50 mg PO QHS #90 tabs 07/11/22 10/12/22 Rx citalopram 20 mg tablet 20 mg PO HS #90 tabs 07/11/22 10/12/22 Rx atogepant 60 mg tablet (Qulipta) 60 mg PO DAILY #30 tabs 07/21/22 10/12/22 Rx sumatriptan succinate 100 mg 100 mg PO ONCE PRN migraine 07/21/22 10/07/22 Rx tablet (Imitrex) headache #9 tabs hydrocodone 5 mg-acetaminophen 325 1 tablet PO Q4H PRN pain #30 tabs 10/11/22 Rx mg tablet Patient hx anesthesia problems: none Family hx anesthesia problems: none Results Review: All pre-operative results and documents have been reviewed as part of the pre-operative evaluation. [facility] Past Medical History Medical History ADD (attention deficit disorder) Anemia History of asthma History of depression History of endometriosis History of gastroesophageal reflux (GERD) History of ovarian cyst Iron deficiency anemia Migraine Morbid obesity Pyloric stenosis Vitamin B12 deficiency Vitamin D deficiency Surgical History Surgical History H/O laparoscopy History of sleeve gastrectomy History of tonsillectomy Social History Social History Smoking status: Never smoker Alcohol intake: current Alcohol use details: VERY RARE Substance use: current Substance use type: marijuana Other substance usage details: THC PEN AT NIGHT for anxiety Last use: 02/14/21 Lack of Transportation: No Lack of Food: Never True Current Housing: I Have Housing Concerned About Future Housing: No Difficulty Paying Gas/Electric Bills: No Difficulty Paying for Meds: No Currently Unemployed: No Education: Associate Degree Difficulty w/ Childcare or Family Care: No Living arrangements: with family Additional living arrangements comments: [employer] Occupation/Education: occupation Gender identity (if verbalized by the patient): Female Spiritual care concerns: No Anes - Eval Final PreProcedure Day of Procedure 10/12/22 06:48 Patient weight: overweight Heart: regular rate and rhythm Lungs: clear to auscultation Airway: Mallampati scale class II Neurological: alert and oriented Last oral intake: >/= 8 hours ASA classification: III Emergent: no Anesthetic plan: proceed Anesthesia type and monitoring: general ETT and standard monitoring Results Review: All pre-operative results and documents have been reviewed as part of the pre-operative evaluation. Informed Consent:
[2022-10-12] MEDS: SCOPOLAMINE 1.5 MG PATCH TRANSDERM (06:51)
--- NOTE | 2022-10-12 08:10 | P.OP_ITS ---
Procedure Note - Detailed Date of Procedure 10/12/22 Pre-op Diagnosis Pelvic Pain, Hx of Endomet Post-op Diagnosis Same Procedure Performed Laparoscopic destruction of endometriosis/lysis of adhesions Surgeon Ariel Ledbetter MD Anesthesia General Indications a 27-year-old female with severe pelvic pain and no abnormal findings on ultrasound Findings endometriosis on the posterior surface of the uterus in the cul-de-sac and along the right uterosacral ligament. The left ovary and tube appeared completely normal. The right ovary was encased in the ovarian fossa. Description of Procedure Patient was prepped draped in normal sterile fashion placed in the dorsal lithotomy position. Under excellent general trach anesthesia weighted speculum placed posterior fornix vagina. Anterior lip of the cervix grasped with single- tooth tenaculum. Burk's cannula inserted the cervix and attached to the single-tooth. Bladder was drained clear urine the weighted speculum was removed. The gloves were changed. A supraumbilical incision made. The Veress needle passed in the abdomen. Abdomen filled with CO2 gas to 15mm Hg. The 5mm trocar was advanced under direct visualization assuring no injury. Patient placed in Trendelenburg. A suprapubic incision made the 5mm trocar advanced under direct visualization assuring no injury. The above findings were seen. A right lower quadrant incision made to facilitate movement. The uterus appeared somewhat angry there was endometriosis and of ligament of the posterior surface of that this was point cauterized at 45 w per 2nd with monopolar cautery. There was some endometriosis seen in the cul-de-sac and this was point cauterized at 35 w per 2nd with monopolar cautery. The right ovary was adherent to the ovarian fossa. Using stretch from the right lower quadrant incision sharp dissection was used to loosen this from the cul-de-sac and vigorous irrigation undertaken until clear. Interceed was placed under this ovary after a small amount of endometriosis was sat. No other abnormalities were seen. Blood loss was estimated at 5cc. The the gas was removed from the abdomen. The trocars removed and the incisions closed with 4-0 Monocryl and glue after gas removed from the abdomen. Patient was awakened went to recovery in satisfactory condition. All sponge, needle, instrument counts were correct. There were no immediate complications Estimated Blood Loss 5 Drains No Packing No Pathology None sent Complications No immediate complications Condition Stable Disposition PACU
[2022-10-12] MEDS: fentaNYL CITRATE INJ (*CRX) 100 MCG/2 ML VIAL 25 MCG IV PUSH ×5 (08:36→09:15)
[2022-10-12] MEDS: ONDANSETRON INJ 4 MG/2 ML VIAL IV PUSH (08:51)
[2022-10-12] MEDS: oxyCODONE HCL (*CRX) 5 MG TAB IR PO (09:59)
== END 2022-10-12 10:40 | disposition home or self-care (01) ==
PROVIDERS: PCP Physician Assistant Medical; Visit Provider Obstetrics & Gynecology
PROC: (CPT 49320; principal; 2022-10-12 07:30)
DX: N80.329 Endometriosis of the posterior cul-de-sac, unspecified depth (principal); N80.3C1 Endometriosis of the right uterosacral ligament, unspecified depth; R10.2 Pelvic and perineal pain; D50.9 Iron deficiency anemia, unspecified; K21.9 Gastro-esophageal reflux disease without esophagitis; E53.8 Deficiency of other specified B group vitamins; E55.9 Vitamin D deficiency, unspecified; Z98.84 Bariatric surgery status; F12.90 Cannabis use, unspecified, uncomplicated; F32.A Depression, unspecified
CPT/HCPCS: 58662; 36415; 85014; 85018; 86850; 86900; 86901; A9270; J0330; J1100; J1885; J2250; J2405; J2704; J2710; J3010; J7120

== ENCOUNTER 2022-11-15 20:33 | Emergency (ER) | payer OTHER, SELFPAY ==
[2022-11-15 20:35] VITALS: BP 117/71; PULSE 75; RESP 15; TEMP 36.1; O2SAT 100
--- NOTE | 2022-11-15 20:39 | ECG_ITS ---
Measurements Intervals [place] Rate: 76 P: 22 DC: 139 QRS: 17 QRSD: 92 T: -17 QT: 351 QTc: 397 Interpretive Statements SINUS RHYTHM RSR' V1/V2 NONSPECIFIC T-WAVE ABNORMALITY BORDERLINE ECG COMPARED TO ECG 10/05/2021 15:00:44 NO SIGNIFICANT CHANGE Electronically Signed On 11-16-2022 15:17:55 CDT by Kobe Zimmerman M.D.
[2022-11-15 20:56] LABS: Basophils Percent Auto 0.6 % (0.2-1.2); Eosinophils Absolute Auto 0.2 K/mm3 (0-0.3); Eosinophils Percent Auto 2.6 % (0-4.4); Hematocrit 44.4 % (37.0-47.0); Hemoglobin 14.4 g/dL (12.0-15.0); Immature Granulocyte Absolute 0.03 K/mm3 (0.00-0.031); Immature Granulocyte Percent A 0.4 % (0-0.5); Lymphocytes Absolute Auto 2.59 K/mm3 (0.9-3.2); Lymphocytes Percent Auto 35.7 % (18.3-44.2); Mean Corpuscular HGB Conc 32.4 g/dl (32-36); Mean Corpuscular Hemoglobin 27.4 pg (26-34); Mean Corpuscular Volume 84.4 fl (80-100); Mean Platelet Volume 10.4 fl (7.4-10.4); Monocytes Absolute Auto 0.5 K/mm3 (0.1-0.6); Neutrophils Absolute Auto 3.9 K/mm3 (1.3-6.7); Neutrophils Percent Auto 53.7 % (45.5-73.1); Platelet Count Result 274 k/mm3 (150-375); Red Blood Count 5.26 M/mm3 (4.2-5.4); Red Cell Distribution Width 12.5 % (11.5-14.5); White Blood Count 7.3 K/mm3 (4.5-10.0)
[2022-11-15 21:13] LABS: Alanine Aminotransferase 20 U/L (6-35); Albumin Level 4.6 g/dL (3.5-5.1); Alkaline Phosphatase 24 U/L (38-126); Anion Gap 10 mmol/L (8-16); Aspartate Amino Transferase 22 U/L (14-36); Bilirubin,Total 0.3 mg/dL (0.2-1.3); Blood Urea Nitrogen 8 mg/dL (7-17); Calcium 9.2 mg/dL (8.4-10.2); Carbon Dioxide 24 mmol/L (22-30); Chloride 105 mmol/L (98-107); Estimated CRCL calculation 107 ml/min; Estimated Glomerular Filt Rate > 60; Glucose 91 mg/dL (65-110); Potassium 3.6 mmol/L (3.4-5.0); Sodium 139 mmol/L (137-145)
[2022-11-15 23:41] VITALS: BP 112/76; PULSE 70; RESP 15; O2SAT 100
--- NOTE | 2022-11-16 00:05 | ED.SYNCOPE ---
HPI - Syncope General Chief Complaint: Syncope <Deena Durán PA-C - Last Filed: 11/16/22 02:13> Stated Complaint: Vertigo episode;concern for concussion <Deena Durán PA-C - Last Filed: 11/16/22 02:13> Time Seen by Provider: 11/15/22 23:41 <Deena Durán PA-C - Last Filed: 11/16/22 02:13> History of Present Illness HPI narrative: 27-year-old female reports for evaluation for syncopal episode that occurred an hour prior to arrival. Patient states that she was meal prepping when she began to feel dizzy and lightheaded, lost her hearing, started to have tunnel vision, then passed out. Patient states she saw her fianc? walking to the front door while her symptoms were occurring and then woke up on the ground. She believes she was only unconscious for 15 seconds. She states her fianc? witnessed the fall and watched her hit her head against the squeegee finisher. She reports that her fianc? did not recall any seizure-like activity. She denied tongue biting and incontinence. She reports that this is happened to her approximately 1 year ago, she went to the emergency department for evaluation and was discharged home and has not had problems since. She does state that she felt palpitations prior to the syncopal episode. She denies chest pain or shortness of breath, fever, cough, abdominal pain, vomiting. She does report diarrhea today and a history of vertigo. She is complaining of left ankle pain overlying her lateral malleolus as well as a headache to the posterior occiput where she hit her head on the squeegee finisher. She has not taken anything for pain. She is able to ambulate. <Deena Durán PA-C - Last Filed: 11/16/22 02:13> Related Data Home Medications: Home Medications Medication Instructions Recorded Confirmed cetirizine 10 mg tablet (Zyrtec) 10 mg PO DAILY PRN Allergy Symptoms 02/15/21 11/10/22 etonogestrel 0.12 mg-ethinyl 1 vag ring vaginal ONCE 11/23/21 11/10/22 estradiol 0.015 mg/24 hr vaginal ring cholecalciferol (vitamin D3) 50 50 mcg PO DAILY 02/08/22 11/10/22 mcg (2,000 unit) capsule cyanocobalamin (vitamin B-12) 500 500 mcg PO DAILY 02/08/22 11/10/22 mcg chewable tablet multivitamin-minerals no.55 1 tablet PO DAILY 02/08/22 11/10/22 ascorbate calcium (vitamin C) 500 500 mg PO DAILY 11/08/22 11/10/22 mg tablet <Deena Durán PA-C - Last Filed: 11/16/22 02:13> Allergies/Adverse Reactions: Allergies Allergy/AdvReac Type Severity Reaction Status Date / Time tramadol AdvReac Severe Palpitation Verified 11/15/22 23:41 s adhesive tape AdvReac Mild Itching Verified 11/15/22 23:41 <Deena Durán PA-C - Last Filed: 11/16/22 02:13> Review of Systems Review of Systems: CONSTITUTIONAL: Denies fever, chills EYES: Denies visual changes, redness, or discharge. ENT: Denies rhinorrhea, congestion, sore throat, or otalgia. CARDIOVASCULAR: Denies chest pain, palpitations, or edema. RESPIRATORY: Denies cough or dyspnea. GASTROINTESTINAL: Denies abdominal pain, nausea, vomiting GENITOURINARY: Denies dysuria or hematuria. SKIN: Denies rash or itching. MUSCULOSKELETAL: Denies back pain, joint pain, or myalgia. NEUROLOGIC: See HPI PSYCHIATRIC: Denies anxiety or depression. <Deena Durán PA-C - Last Filed: 11/16/22 02:13> [facility] Past Medical History Medical History: Medical History ADD (attention deficit disorder) Anemia History of asthma History of depression History of endometriosis History of gastroesophageal reflux (GERD) History of ovarian cyst Iron deficiency anemia Migraine Morbid obesity Pyloric stenosis Vitamin B12 deficiency Vitamin D deficiency <Deena Durán PA-C - Last Filed: 11/16/22 02:13> Surgical History Surgical History: Surgical History H/O laparoscopy History of sleeve gastrectomy His
[2022-11-16] MEDS: SODIUM CHLORIDE 0.9% IV 1,000 ML 999 ML IV CONT (00:28)
[2022-11-16] MEDS: KETOROLAC 30 MG/ML VIAL (*BKC) IV PUSH (00:28)
[2022-11-16 01:43] VITALS: BP 108/60; PULSE 65
[2022-11-16 01:44] VITALS: BP 124/79; PULSE 62
[2022-11-16 01:47] VITALS: BP 131/73; PULSE 74
[2022-11-16 02:26] VITALS: BP 124/78; PULSE 78; RESP 15; O2SAT 98
== END 2022-11-16 02:28 | disposition home or self-care (01) ==
PROVIDERS: Emergency Medicine; Emergency Provider Physician Assistant; PCP Physician Assistant Medical
DX: R55 Syncope and collapse (principal); J45.909 Unspecified asthma, uncomplicated; N80.9 Endometriosis, unspecified; D50.9 Iron deficiency anemia, unspecified; K21.9 Gastro-esophageal reflux disease without esophagitis; E66.01 Morbid (severe) obesity due to excess calories; Z68.26 Body mass index [BMI] 26.0-26.9, adult; E53.8 Deficiency of other specified B group vitamins; E55.9 Vitamin D deficiency, unspecified; Z98.84 Bariatric surgery status; R94.31 Abnormal electrocardiogram [ECG] [EKG]
CPT/HCPCS: 36415; 80053; 81025; 85025; 93005; 96361; 96374; 99284; J1885; J7030

== ENCOUNTER 2022-12-28 14:54 | Outpatient (CLI) | payer OTHER, SELFPAY ==
--- NOTE | 2022-12-28 15:29 | ECHO_ITS ---
Patient Info Name: Odessa Faye Age: 27 years : 1995 Gender: Female Ht: 68 in Wt: 175 lbs BSA: 1.97 m2 HR: 77 bpm BP: 106 / 81 mmHg Heart Rhythm: Sinus Rhythm Technical Quality: Good Exam Date: 12/28/2022 3:45 PM Exam Location: [facility] Pulmonary Patient Status: Outpatient Admit Date: 12/28/2022 Staff Ordering Physician: Teresa Rodriguez PA-C Channel Account Manager: Wesly Fairchild RDCS Attending Provider: Teresa Rodriguez PA-C Referring Physician: Michael GARDNER; Exam Type: CA echo doppler color flow Study Info Indications - syncope and collaps Complete two-dimensional, color flow and Doppler transthoracic echocardiogram is performed. Summary 1. Complete two-dimensional, color flow and Doppler transthoracic echocardiogram is performed. 2. Left ventricular chamber dimension is normal. 3. Left ventricular systolic function is normal, estimated at 60-65%. 4. Right ventricular systolic function is normal. 5. There is trace pulmonic regurgitation. Left Ventricle Left ventricular chamber dimension is normal. Left ventricular systolic function is normal, estimated at 60-65%. There is no increased left ventricular wall thickness. The left ventricular diastolic function is normal. Right Ventricle Right ventricular chamber dimension is normal. Right ventricular systolic function is normal. Left Atria Left atrial chamber dimension is normal. Right Atria Right atrial chamber dimension is normal. Atrial Septum Intact interatrial septum visualized by color flow imaging. Aortic Valve The aortic valve is trileaflet. There is no aortic valve stenosis. There is no aortic valve regurgitation. Pulmonic Valve The pulmonic valve is not well visualized. There is trace pulmonic regurgitation. Mitral Valve There is no mitral valve regurgitation. Tricuspid Valve There is no tricuspid valve regurgitation. Pericardium/Pleural There is no pericardial effusion. Inferior Vena Cava Normal inferior vena cava with >50% collapse upon inspiration consistent with normal right atrial pressure, 3 mmHg. Aorta The aortic root size at the sinus of Valsalva is normal. Left Ventricular Outflow Tract Name Value Normal LVOT 2D LVOT Diameter 1.9 cm LVOT Doppler LVOT Peak Gradient 2 mmHg LVOT Mean Gradient 1 mmHg LVOT VTI 22 cm LVOT VTI/AV VTI Ratio 1.0 LVOT Stroke Volume 66 ml LVOT CO 9.2 l/min LVOT CI 4.7 l/min/m2 Pulmonic Valve Name Value Normal RVOT Doppler RVOT Peak Gradient 4 mmHg PV Doppler PV Peak Gradient 4 mmHg Mitral Valve Name
== END 2022-12-28 14:55 | disposition home or self-care (01) ==
LOC: ANHCARD 14:55
PROVIDERS: PCP Physician Assistant Medical; Visit Provider Physician Assistant Medical
DX: R55 Syncope and collapse (principal); Z87.898 Personal history of other specified conditions
CPT/HCPCS: 93306

== ENCOUNTER 2023-12-22 13:12 | Outpatient (CLI) | payer OTHER, SELFPAY ==
--- NOTE | ~2023-12-22 | US_ITS ---
EXAMINATION: US soft tissue head and neck DATE: 12/22/2023 13:34 INDICATION: Right neck mass. TECHNIQUE: Multiple grayscale and Doppler ultrasound images of the head and neck were obtained. COMPARISON: None FINDINGS: There are normal lymph nodes in right neck in the patient's area concern. IMPRESSION: 1. No abnormal mass or lymphadenopathy in the patient's area of concern in right neck. Reviewed, dictated and finalized at location A. IMPRESSION: 1. No abnormal mass or lymphadenopathy in the patient's area of concern in righ t neck.
== END 2023-12-22 13:13 | disposition home or self-care (01) ==
LOC: MICIMG 13:13
PROVIDERS: PCP Physician Assistant Medical; Visit Provider Physician Assistant Medical
DX: R22.1 Localized swelling, mass and lump, neck (principal); R09.89 Other specified symptoms and signs involving the circulatory and respiratory systems
CPT/HCPCS: 76536

== ENCOUNTER 2024-02-13 14:04 | Outpatient (CLI) | payer OTHER, SELFPAY ==
[2024-02-13 14:29] LABS: Hematocrit 32.3 % (37.0-47.0); Hemoglobin 9.1 g/dL (12.0-15.0)
== END 2024-02-13 14:05 | disposition home or self-care (01) ==
LOC: ANHSURGERY 14:09
PROVIDERS: Anesthesiology; PCP Physician Assistant Medical; Visit Provider Obstetrics & Gynecology
DX: D50.9 Iron deficiency anemia, unspecified (principal); Z87.42 Personal history of other diseases of the female genital tract; Z01.812 Encounter for preprocedural laboratory examination
CPT/HCPCS: 36415; 85014; 85018; 86850; 86900; 86901

== ENCOUNTER 2024-02-16 04:47 | Day surgery (SDC) | payer OTHER, SELFPAY ==
[2024-02-12 09:38] VITALS: BMI 25.1
--- NOTE | 2024-02-12 09:39 | PC.NURSE ---
Report to the Outpatient Waiting Room, entrance under the green pavilion located off [facility], at time _0730_ on date _[id number]_. Planned Procedure Time: _0930_.? Time changes happen often and if your time is changed the preop area will call you the afternoon before. - You and your visitor will be asked to self-screen and do not enter if you have any COVID symptoms. Please call surgeon if you need to reschedule. - A mask is optional within the hospital at this time. Patients may have clear liquids (water, carbonated beverages, clear teas, apple juice) until 3 hours prior to surgery with a maximum of 20 ounces. - No food from midnight until time of surgery and no smoking Take only the following medications with a SIP of water on the morning of surgery: ___Trellegy inhaler and if needed Albuterol inhaler. DO NOT STOP ANY OF YOUR OTHER PRESCRIPTION MEDICATIONS PRIOR TO SURGERY EXCEPT THE FOLLOWING Medications to discontinue per physician ___Vitamins___ Date to take last gjdj___[id number] Please no make-up, nail mont[place], hairspray, perfume, deodorant, or body powder the day of surgery.? No jewelry (including any body piercings) or valuables the day of surgery, leave them at home.? Please take a shower or bath the night before, or the morning of, surgery with an antibacterial soap.? Wear comfortable, loose fitting clothing.? - Jewelry must be removed prior to entering the operating room.? Rings and piercings that are not removed may be cut off. - The hospital will not accept responsibility for valuables.? - Please leave all valuables, including medications, at home the day of surgery. If you are going home after surgery, a licensed entry driver operator must drive you home.? - NO public transportation without another adult if you receive anesthesia. - We recommend that an adult stay with you for 24 hours following discharge. - We also recommend that you do not drive, make important decision, drink alcoholic beverages, or take any drugs that were not prescribed by your health care provider for at least 24 hours after your discharge time. Follow any additional instructions given to you from your surgeon. Telephone instructions given to __Megan__and asked if any additional questions and then verbalized understanding. Patient advised to call surgeon office or pre surgery nurse liaison [phone] if any additional questions.
--- NOTE | 2024-02-14 11:34 | P.HP_ITS ---
H&P: HPI History of Present Illness Date/Time: 02/14/24 11:34 Chief Complaint: Pelvic pain and dyspareunia Narrative: 28-year-old female admitted for laparoscopy and suspected cauterization of endometriosis. She has a history of endometriosis has had surgery before in the past. Imaging was not helpful in cultures were negative risks and benefits of this procedure reviewed including but not exclusive of , aspiration, bleeding, transfusion, perforation injury to bowel, bladder, ureters, or other internal organs with need for open laparotomy. She received the A[employer] handout entitled laparoscopy. She had all questions answered. She asked to proceed PMFSH Past Medical History Medical History ADD (attention deficit disorder) Anemia Asthma History of asthma History of depression History of endometriosis History of gastroesophageal reflux (GERD) History of ovarian cyst Iron deficiency anemia Migraine Morbid obesity Pyloric stenosis Syncope Vitamin B12 deficiency Vitamin D deficiency Surgical History Surgical History H/O laparoscopy History of sleeve gastrectomy History of tonsillectomy Family History Family History Grandparent Carcinoma of colon Diabetes mellitus Hypertension Social History Social History Social History: 12/16/23 Very confident with medical forms Smoking status: Never smoker Alcohol intake: current Alcohol use details: VERY RARE Substance use: current Substance use type: marijuana Other substance usage details: Daily Last use: 02/14/21 Do You Feel Safe in your Home?: Yes Lack of Transportation: No Lack of Food: Never True Current Housing: I Have Housing Concerned About Future Housing: No Difficulty Paying Gas/Electric Bills: No Difficulty Paying for Meds: No Currently Unemployed: No Education: Associate Degree Difficulty w/ Childcare or Family Care: No Living arrangements: with family Additional living arrangements comments: [place] Occupation/Education: occupation Gender identity (if verbalized by the patient): Female Spiritual care concerns: No Meds Home Medications and Allergies Home Medications Medication Instructions Recorded Confirmed Type cetirizine 10 mg tablet (Zyrtec) 10 mg PO DAILY PRN Allergy Symptoms 02/15/21 02/12/24 History vits 75-iron 28 mg-folic 1 pkg PO DAILY 05/15/23 02/12/24 History acid 800 mcg-omega-3 oral combo pack (One A Day Women's DHA) albuterol sulfate 90 mcg/actuation 2 inh inhalation Q4H PRN shortness 12/19/23 02/12/24 Rx aerosol inhaler (Ventolin HFA) of breath or wheezing #6.7 grams cholecalciferol (vitamin D3) 50 50 mcg PO DAILY #90 caps 12/20/23 02/12/24 Rx mcg (2,000 unit) capsule fluticasone fur. 100 mcg-umeclid 1 inh inhalation DAILY #60 ea 01/09/24 02/12/24 Rx 62.5 mcg-vilant 25 mcg inhalat.powder (Trelegy Ellipta) Allergies Allergy/AdvReac Type Severity Reaction Status Date / Time tramadol AdvReac Severe Palpitation Verified 02/12/24 09:31 s adhesive tape AdvReac Mild Itching Verified 02/12/24 09:31 sumatriptan [From Imitrex] AdvReac Palpitation Verified 02/12/24 09:31 s Exam Const: General: cooperative, healthy appearing, comfortable and overweight Orientation/consciousness: oriented to person, oriented to place and oriented to time Resp: Effort & Inspection: normal respiratory effort Cardio: Rate: regular rate Rhythm: regular rhythm Heart sounds: S1 normal heart sound present and S2 normal heart sound present GI: Inspection: normal to inspection : External Female Exam: normal external appearance Speculum Exam - Vagin a: normal appearance of the vagina Speculum Exam - Cervix: normal appearance of the cervix Bimanual exam- vagina & uterus: Uterine tenderness Bimanual Exam- Adnexa, other: tender bilaterally Assessment and Plan Assessment and plan (1) Pelvic pain: Code(s): R10.2 - Pelvic and perineal pain Status: Acute (2) Anemia: Code(s): D64.9 - Anemia, unspecified Status: Acute Assessment and Plan: Proceed with laparoscopy
[2024-02-16] VITALS (9 sets, daily range): BP systolic 104–124; BP diastolic 59–72; PULSE 53–78; RESP 10–18; TEMP 36.1; O2SAT 98–100
--- NOTE | 2024-02-16 07:11 | WPDHPUPDATE1 ---
History and Physical Update Update Date/Time: 02/16/24 07:11 History and Physical has been reviewed, including an updated exam of the patient. There are NO changes in the patient's condition. Risks, benefits, and alternatives have been discussed and questions answered. Patient agrees to proceed with procedure.
[2024-02-16] MEDS: KETOROLAC 15 MG/ML VIAL (*BKC) IV PUSH ×2 (08:15→09:17)
[2024-02-16] MEDS: LACTATED RINGERS 1,000 ML 30 ML IV CONT ×2 (08:15→10:19)
[2024-02-16] MEDS: ACETAMINOPHEN 500 MG TABLET 1000 MG PO (08:15)
[2024-02-16] MEDS: SCOPOLAMINE 1 MG PATCH 1 PATCH TRANSDERM (08:20)
--- NOTE | 2024-02-16 08:21 | P.PNAN_ITS ---
Anes - Initial Pre Proc Eval Procedure: Operation Date: 02/16/24 09:30 Proposed Procedures p Diagnostic Laparoscopy, Cautery of Endometriosis - Ariel Ledbetter MD Date/Time: 02/16/24 08:21 Surgeon: Ariel Ledbetter MD Pre Op Diagnosis: pelvic pain, dysmenorrhea, endometriosis Patient Data Age: 28 Gender: F Height: 1.73 m Weight: 75 kg Allergies Allergy/AdvReac Type Severity Reaction Status Date / Time tramadol AdvReac Severe Palpitation Verified 02/12/24 09:31 s adhesive tape AdvReac Mild Itching Verified 02/12/24 09:31 sumatriptan [From Imitrex] AdvReac Palpitation Verified 02/12/24 09:31 s Home Medications Medication Instructions Recorded Confirmed Type cetirizine 10 mg tablet (Zyrtec) 10 mg PO DAILY PRN Allergy Symptoms 02/15/21 02/12/24 History vits 75-iron 28 mg-folic 1 pkg PO DAILY 05/15/23 02/12/24 History acid 800 mcg-omega-3 oral combo pack (One A Day Women's DHA) albuterol sulfate 90 mcg/actuation 2 inh inhalation Q4H PRN shortness 12/19/23 02/12/24 Rx aerosol inhaler (Ventolin HFA) of breath or wheezing #6.7 grams cholecalciferol (vitamin D3) 50 50 mcg PO DAILY #90 caps 12/20/23 02/12/24 Rx mcg (2,000 unit) capsule fluticasone fur. 100 mcg-umeclid 1 inh inhalation DAILY #60 ea 01/09/24 02/12/24 Rx 62.5 mcg-vilant 25 mcg inhalat.powder (Trelegy Ellipta) hydrocodone 5 mg-acetaminophen 325 1 tablet PO Q4H PRN pain #20 tabs 02/16/24 Rx mg tablet Patient hx anesthesia problems: none Family hx anesthesia problems: none Results Review: All pre-operative results and documents have been reviewed as part of the pre- operative evaluation. [facility] Past Medical History Medical History (Updated 02/16/24 @ 08:21 by Ariel Dhaliwal MD) ADD (attention deficit disorder) Anemia Asthma History of asthma History of depression History of endometriosis History of gastroesophageal reflux (GERD) History of ovarian cyst Iron deficiency anemia Migraine Pyloric stenosis Syncope Vitamin B12 deficiency Vitamin D deficiency Surgical History Surgical History H/O laparoscopy History of sleeve gastrectomy History of tonsillectomy Family History Family History Grandparent Carcinoma of colon Diabetes mellitus Hypertension Social History Social History Social History: 12/16/23 Very confident with medical forms Smoking status: Never smoker Alcohol intake: current Alcohol use details: VERY RARE Substance use: current Substance use type: marijuana Other substance usage details: Daily Last use: 02/14/21 Do You Feel Safe in your Home?: Yes Lack of Transportation: No Lack of Food: Never True Current Housing: I Have Housing Concerned About Future Housing: No Difficulty Paying Gas/Electric Bills: No Difficulty Paying for Meds: No Currently Unemployed: No Education: Associate Degree Difficulty w/ Childcare or Family Care: No Living arrangements: with family Additional living arrangements comments: [place] Occupation/Education: occupation Gender identity (if verbalized by the patient): Female Spiritual care concerns: No Anes - Eval Final PreProcedure Day of Procedure 02/16/24 08:21 Patient weight: normal Heart: regular rate and rhythm Lungs: clear to auscultation Airway: Mallampati scale class II Neurological: alert and oriented Last oral intake: >/= 8 hours ASA classification: II Emergent: no Anesthetic plan: proceed Anesthesia type and monitoring: general ETT and standard monitoring Results Review: All pre-operative results and documents have been reviewed as part of the pre- operative evaluation. Informed Consent: The patient's anesthetic plan and its attendant risks and benefits were discussed with the patient/family/POA. Questions were solicited and answers provided to the satisfaction of the patient/family/POA.
--- NOTE | 2024-02-16 09:20 | P.OP_ITS ---
Procedure Note - Detailed Date of Procedure 02/16/24 Pre-op Diagnosis pelvic pain, dysmenorrhea, endometriosis Post-op Diagnosis Same Procedure Performed Laparoscopy with destruction endometriosis Surgeon Ariel Ledbetter MD Anesthesia General Indications 28-year-old female with history of endometriosis and severe pelvic pain Findings endometriosis on the surface of the uterus bilateral tubes and ovaries endometriosis seen along the year right uterosacral ligament Description of Procedure the patient was prepped draped in the normal sterile fashion placed in the dorsal lithotomy position. Under excellent general trach anesthesia weighted speculum placed in posterior fornix of vagina. Anterior cervix grasped with single-tooth Burk's cannula inserted the cervix and attached to the single- tooth to be used later for uterine manipulation. Weighted speculum was removed and the bladder was emptied clear urine. The gloves were changed. A supraumbilical incision made the Veress needle passed in the abdomen. Abdomen filled with CO2 gas [id number]. The 5mm trocar advanced under direct visualization assuring no injury. Patient placed in Trendelenburg and a suprapubic incision made. The 5 trocar advanced visualization injury. [id number] of serosanguineous fluid was seen in the cul-de-sac and this was irrigated and removed. Areas of endometriosis and blistered formed were seen on each ovary and posterior surface of the uterus. The right fallopian tube was somewhat adhesed and this was gently released and appeared within normal limits. The areas of endometriosis were cauterized at 35 w per SPECT spur 2nd with electrocautery and monopolar fashion. Irrigation undertaken until clear and no other abnormalities were seen. Lower site. The gas removed from the abdomen. The upper site removed. The incisions closed with 4 Monocryl and glue. Instruments removed from the vagina the patient went recovery in satisfactory condition. All sponge, needle, instrument counts were correct. There were no immediate complications Estimated Blood Loss 5 Drains No Packing No Pathology None sent Complications No immediate complications Condition Stable Disposition PACU
[2024-02-16] MEDS: fentaNYL CITRATE INJ (*CRX) 100 MCG/2 ML VIAL 25 MCG IV PUSH ×4 (09:50→10:06)
[2024-02-16] MEDS: ONDANSETRON INJ 4 MG/2 ML VIAL IV PUSH (10:11)
[2024-02-16] MEDS: oxyCODONE HCL (*CRX) 5 MG TAB IR PO (10:54)
[2024-02-19 10:01] LABS: BEDSIDEPREGUCG Negative (Negative)
[2024-02-19 10:01] LABS: BEDSIDEPREGUCG Negative (Negative)
== END 2024-02-16 11:35 | disposition home or self-care (01) ==
PROVIDERS: PCP Physician Assistant Medical; Visit Provider Obstetrics & Gynecology
PROC: (CPT 49320; principal; 2024-02-16 09:30)
DX: N80.00 Endometriosis of the uterus, unspecified (principal); N80.203 Endometriosis of bilateral fallopian tubes, unspecified depth; N80.3C1 Endometriosis of the right uterosacral ligament, unspecified depth; D64.9 Anemia, unspecified; E55.9 Vitamin D deficiency, unspecified; J45.909 Unspecified asthma, uncomplicated; Z98.84 Bariatric surgery status; F12.90 Cannabis use, unspecified, uncomplicated
CPT/HCPCS: 58662; A9270; J1100; J1885; J2003; J2250; J2405; J2704; J3010; J7120

== ENCOUNTER 2024-06-17 10:55 | Outpatient (CLI) | payer OTHER, SELFPAY ==
--- NOTE | ~2024-06-17 | XR_ITS ---
EXAMINATION: XR hysterosalpingogram DATE: 06/17/2024 12:00 INDICATION: Infertility TECHNIQUE: Multiple fluoroscopic images were obtained during contrast infusion into the endometrial c anal of the uterus by the primary physician. Fluoroscopy exposure time was 0.6 minutes. A total of 6 fluoroscopic images were recorded. Total DAP was 3.59 mGycm^2 FINDINGS: The uterine cavity demonstrates normal morphology. The fallopian tubes are normal in caliber and pat ent bilaterally. There is normal spillage of contrast into the peritoneum on both sides. IMPRESSION: 1. Normal hysterosalpingogram. Reviewed, dictated and finalized at location A.
--- OUTSIDE RECORDS SUMMARY | 2024-06-17 13:28 | XMS_ITS | Continuity of Care Document ---
Author Organization [employer] Address [address] [place] [address] Phone Care Team Providers Care Grid Molder Name Role Phone Lauri Naylor MD Unavailable Unavailable Allergies, Adverse Reactions, Alerts Substance Reaction Status Criticality No Known Allergies Active No Inform ation Medications Medication Instructions Dosage Effective Dates (start - stop) Status Comments BREO ELLIPTA 100-25 MCG INH INHALE 1 PUFF BY MOUTH EVERY DAY AT THE SAME TIME EVERY DAY - Active pantoprazole 40 mg tablet,delayed release TAKE 1 TABLET (40MG) BY ORAL ROUTE ONE HOUR BEFORE A MEAL EVERY DAY - Active ProAir HFA 90 mcg/actuation aerosol inhaler inhale 2 puff by inhalation route every 4 - 6 hours as needed - Active cetirizine 10 mg tablet take 1 tablet by oral route every evening 10 MG - Active fluticasone 50 mcg/actuation nasal spray,suspension spray 2 spray by intranasal route every day in each nostril 100 MCG - Active Orilissa 150 mg tablet take 1 tablet by oral route every day at approximately the same time each day 150 MG - Active Procedures Procedure Date HEALTH RISK ASSESSMENT, PATIENT-FOCUSED OFFICE [id number] BODY MASS INDEX DOCD SYST BP LT 130 MM HG DIAST BP < 80 MM HG PULMONARY SPIROMETRY, FUNCTION 20 MOUTHPIECE HEALTH RISK ASSESSMENT, PATIENT-FOCUSED OFFICE [id number] BODY MASS INDEX DOCD SYST BP LT 130 MM HG DIAST BP < 80 MM HG PULMONARY SPIROMETRY, FUNCTION 19 MOUTHPIECE Advance Directives Directive Yes / No Effective Date File Name No Information Encounters Encounter Description Practice Location Reason(s) For Visit Diagnoses Date Provider Providers Copied on Encounter [facility], [address], [place], [place], [id number] , tel: [phone] [facility] [place] No Information 0 Dayday Carreon. [address] [place] [address], [id number] , . tel: [phone] [facility], [address], [place], [place], [id number] , tel: [phone] [facility] [place] No Information 0 Dayday [facility]reon. [address] [place] [address], [id number] , . tel: [phone] OFFICE [id number] TAILED [facility], [address], [place], [place], [id number] , tel: [phone] [facility] [place] asthma (chief complaint) Asthma-con trol (chief complaint) allergies (chief complaint) GERD (chief complaint) Moderate persistent asthma, uncomplicatedSeason al allergic rhinitis due to pollenSeasonal allergic rhinitis due to fungal sporesAllergic rhinitis due to animal (cat) (dog) hair and dander 0 Dayday Carreon. [address], [id number] , . tel: [phone] Referring Provider: Lauri Naylor, [address] [place] [address], [address] . tel:[phone] [employer], [address], [place], [place], [address] , tel: [phone] [facility] [place] No Information 0 Shawn Mulligan . [address] [facility] [address], [id number] , [place]. tel:[phone] OFFICE [id number] [facility], [address], [place], [place], [id number] , [place] tel: [phone] [facility] [place] asthma (chief complaint) Asthma-con trol (chief complaint) allergies (chief complaint) Moderate persistent asthma, uncomplicatedSeason al allergic rhinitis due to pollenSeasonal allergic rhinitis due to fungal sporesAllergic rhinitis due to animal (cat) (dog) hair and dander Jan- 9 Dayday Carreon. [address] [facility], [address], [id number] , [place]. tel: [phone] Referring Provider: Lauri Naylor, [address] [place] [address], [address] . tel:[phone] [facility], [address], [place], [place], [address] , [place] tel: [phone] [facility] asthma (chief complaint) Asthma-con trol (chief complaint) allergies (chief complaint) Moderate persistent asthma, uncomplicatedSeason al allergic rhinitis due to pollenSeasonal allergic rhinitis due to fungal sporesAllergic rhinitis due to animal (cat) (dog) hair and danderChronic cough 9 Dayday Carreon. [address] [facility], [address], [id number] , [place]. tel: [phone] Referring Provider: Jacobo Ly [facility] [address], [place], [address]. tel:[phone] [facility], [address], [place], [place], [id number] , [place] tel: [phone] [facility] Moderate persistent asthma, uncomplicatedSeason al allergic rhinitis due to pollenSeasonal allergic rhinitis due to fungal sporesAllergic rhinitis due to animal (cat) (dog) hair and dander Jan-0 8 Dayday [facility]. [address] [place] [address], [id number] , [place]. tel: [phone] Referring Provider: Mirian Bah [address] [facility] [address], [place], [address]. tel:[phone] [employer], [address], [place], [place], [address] , tel:[phone] [facility] Mild persistent asthma, uncomplicatedSeason al allergic rhinitis due to pollenAllergic rhinitis due to animal (cat) (dog) hair and danderSeasonal allergic rhinitis due to fungal spores 8 Shawn Mulligan . [address] [facility], [address], [id number] , . [phone] Referring Provider: Lauri Naylor, [address], [address] . tel:[phone] [facility], [address], [place], [place], [id number] , tel:[phone] [facility] Seasonal allergic rhinitis due to fungal sporesAllergic rhinitis due to animal (cat) (dog) hair and danderSeasonal allergic rhinitis due to pollenMild intermittent asthma without complication 0 8 Dayday [facility]reon. [address], [id number] , . tel:[phone] Referring Provider: Kyleigh Nix, [address] [facility] [address], [place], [address]. tel:[phone] Family History Family Member Type Diagnosis Age At Onset Mother Problem (finding) Allergies Payers Payer name Insurance type Covered libertarian ID Sinaa ahmetlu(s) [employer] [facility] [place] CI [id number] Social History Type Description Quantity Date Captured Comments Sex Female Smoking Status No Information Chief Complaint And Reason For Visit No Information Reason For Referral Reason For Referral No Information History Of Present Illness Encounter Date Complaint History Of Prese nt Illness GERD Asthma-control Odessa was seen t [facility] for asthma management. Her asthma is classified as Moderate Persistent.Since Her last visit for asthma control on 01/23/2019, She has had asthma related:-hospitalizations: NO-ER/Urgent care visits: NO-oral steroids: NO-rescue inhaler use: YES-Missed school/work: NOAsthma Control Test score: 201. Unlimited activity: None of the time (5)2. Caused shortness of breath: Once a day (2)3. Interrupted sleep: Not at all (5)4. How often using rescue med: Once a week or less (4)5. Personal rating of control: Well controlled (4)The asthma is Well Controlled.Known triggers include: animals, colds and exercise.Environmental exposure/control:Smoker: NOTobacco exposure: NOFamily history notable for:Asthma: NOAllergy: YES, MotherPrevious allergy testing was on 08/03/2017. Results - TREES, WEEDS, MOLD, CAT, DOG, and HOUSE DUST MITES.Spirometry was last performed on 01/23/2019. Results - MILDLY OBSTRUCTED. allergies asthma (comments) Last seen 01/02 06/19 and before this on 07/16/18Remains on Breo (100/25) 1 click qd.No major exacerbations in interimProair MDI prnShe denies GERD symptomsNo flu shot again last fallShe is a JR in [employer] 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 need a second dose of Cetirizine. No interim sinusitis. GERD (comments) Pantoprazole 40 mg once daily for reflux with good results and no need for additional medications. asthma allergies asthma asthma (comments) Last seen 07/16 and before this on 01/08/18.Remains on Breo (100/25) 1 click qd.Much better control she feels on the Breo than previous Arnuity. 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 No interim sinusitis. Asthma-control Odessa was seen maikel blackwell for asthma management. Her asthma is classified as Moderate Persistent.She has had asthma related:-hospitalizations: NO-ER/Urgent care visits: NO-oral steroids: NO-rescue inhaler use: YES-Missed school/work: NOAsthma Control Test score: 171. Unlimited activity: A little of the time (4)2. Caused shortness of breath: 3-6 times a week (3)3. Interrupted sleep: Once or twice (4)4. How often using rescue med: 2 or 3 times per week (3)5. Personal rating of control: Somewhat controlled (3)The asthma is Well Controlled.Known triggers include: animals, colds and exercise.Environmental exposure/control:Smoker: NOTobacco exposure: NOFamily history notable for:Asthma: NOAllergy: YES, MotherPrevious allergy testing was on 08/03/2017. Results - TREES, WEEDS, MOLD, CAT, DOG, and HOUSE DUST MITES.Spirometry was last performed on 07/16/2018. Results - Mildly obstructed. asthma allergies Asthma-control Odessa was seen maikel blackwell for asthma management. Her asthma is classified as Moderate Persistent.Since Her last visit for asthma control on 01/08/2018, She has had asthma related:-hospitalizations: NO-ER/Urgent care visits: NO-oral steroids: NO-rescue inhaler use: YES-Missed school/work: NOAsthma Control Test score: 231. Unlimited activity: None of the time (5)2. Caused shortness of breath: Once or twice a week (4)3. Interrupted sleep: Not at all (5)4. How often using rescue med: Not at all (5)5. Personal rating of control: Well controlled (4)The asthma is Well Controlled.Known triggers include: animals, colds and exercise.Environmental exposure/control:Smoker: NOTobacco exposure: NOFamily history notable for:Asthma: NOAllergy: YES, MotherPrevious allergy testing was on 08/03/2017. Results - TREES, WEEDS, MOLD, CAT, DOG, and HOUSE DUST MITES.Spirometry was last performed on 01/08/2018. asthma (comments) Last seen 01/08 and before this on 08/22/17 Since 08/03/17 on Arnuity 100mcg for chronic cough and better but still some cough so was switched from Arnuity to Breo (100/25) 1 click qd (08/22/17).Much better control she feels on the Breo. Proair MDI prn, and a canister last > 6 months. 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 No interim sinusitis.Indoor dog x 1 in BR at night. Functional Status Date Functional Assessmen t No Information Instructions Date Instruction Additional Infor gregg Continue to bathe an d consider keeping pets out of bedroom when possible. Related to Allergic rhinitis due to animal (cat) (dog) hair and dander As above. Related to Seaso nal allergic rhinitis due to fungal spores We reviewed appropri ate environmental control measures for your rhinitis.Please continue with your present nasal medications or treatment that include Fluticasone nasal spray and Cetirizine 10mg once to twice daily as needed. Call for increasing symptoms or difficulty with medications. Refills provided or call when more are needed.Considering starting Immunotherapy in late fall (after harvest) locally if possible (?school clinic) Related to Seasonal allergic rhinitis due to pollen Pulmonary functions performed today with good effort were MILDLY OBSTRUCTED and similar to previous. Asthma Control Test (normal >19) = 20. Asthma is overall stable. Continue with present daily controller medication (Breo 100/25, 1 click once daily) unchanged. I reviewed the benefits and risks including side effects of this medication. We discussed the use of rescue medication (Proair) and an Asthma Action Plan. Please call for the frequent use of your rescue inhaler (beyond that discussed above) or difficulties with your asthma causing frequent night time awakenings Related to Moderate persistent asthma, uncomplicated Medication management Avoid dander when possible. Rela kush to Allergic rhinitis due to animal (cat) (dog) hair and dander As above. Related to Seaso nal allergic rhinitis due to fungal spores We reviewed appropri ate environmental control measures for your rhinitis.Please continue with your present nasal medications or treatment that include Fluticasone nasal spray and Cetirizine 10mg once daily year round. Will try Nasal saline rinses in the shower when sinus infections starting. Call for increasing symptoms or difficulty with medications. Refills provided or call when more are needed. Related to Seasonal allergic rhinitis due to pollen Pulmonary functions performed today with good effort were MILDLY OBSTRUCTED. Asthma Control Test (normal >19) = 17. Asthma is overall stable. Continue with present daily controller medication (Breo 100/25, 1 puff once daily) unchanged. I reviewed the benefits and risks including side effects of this medication. We discussed the use of rescue medication (Proair) and an Asthma Action Plan. Please call for the frequent use of your rescue inhaler (beyond that discussed above) or difficulties with your asthma causing frequent night time awakenings Related to Moderate persistent asthma, uncomplicated Medication management Medication management As above. Related to Seaso nal allergic rhinitis due to fungal spores Avoid dog dander as much as poss ible. Related to Allergic rhinitis due to animal (cat) (dog) hair and dander We reviewed appropri ate environmental control measures for your rhinitis.Please continue with your present nasal medications or treatment that include Cetirizine and fluticasone nasal spray daily. May also consider Immunotherapy (allergy shots) in the future. Call for increasing symptoms or difficulty with medications. Refills provided or call when more are needed. Related to Seasonal allergic rhinitis due to pollen Discussed most commo n causes for chronic cough: post nasal drip (PND) due to either allergic or non-allergic inhalants, sinusitis, asthma, and reflux disease (can be silent).So before we increase asthma therapy, would suggest a trial of reflux medicationsWill start with Pantoprazole 40 mg once daily an hour before a meal for 4 weeksCall at end of this to update me on your cough. Related to Chronic cough Pulmonary functions performed today with good effort were MILDLY OBSTRUCTED and similar to previous testing. Asthma Control Test (normal >19) = 23. Asthma is overall stable. Continue with present daily controller medication (Breo 100/25, 1 click once daily ) unchanged. I reviewed the benefits and risks including side effects of this medication. We discussed the use of rescue medication (Proair) and an Asthma Action Plan. Please call for the frequent use of your rescue inhaler (beyond that discussed above) or difficulties with your asthma causing frequent night time awakenings Related to Moderate persistent asthma, uncomplicated Medication management Assessments Type Assessment Date No Information Patient Care Teams Name Effective Dates (start - stop) Status Members No Information
--- OUTSIDE RECORDS SUMMARY | 2024-06-17 13:28 | XMS_ITS | Encounter Summary ---
Author Organization [facility] Address [address] [place] [address] Care Team Providers Care Portainer Operator Name Role Phone Teresa Rodriguez PA-C Primary Care Provider [phone] Reason for Visit * Reason Onset Date Comments Medical management 03/08/2021 Gave message to RESIDENTIAL AIR SEALING TECHNICIAN Ravi huff Encounter Details Date Type Department Care Team (Late st Contact Info) Description 03/08/2021 Telephone [facility] Admitting [address] [place] [address] [place] [address] [address] [place] [address] Medical management (Gave message to RESIDENTIAL AIR SEALING TECHNICIAN Ravi huff) Social History Tobacco Use Types Packs/Day Years Used Date Smoking Tobacco: Never Smokeless Tobacco: Never Alcohol Use Standard Drinks/Week Comments Yes 0 (1 standard drink = 0.6 oz pur e alcohol) social Comments No Sex and Gender Information Value Date Recorded Sex Assigned at Not on file Legal Sex Female 7:07 AM CDT Gender Identity Not on file Sexual Orientation Not on file COVID-19 Exposure Response Date Recorded In the last month, have you been in contact with someone who was confirmed or suspected to have Coronavirus / COVID-19? 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
--- OUTSIDE RECORDS SUMMARY | 2024-06-17 13:28 | XMS_ITS | Clinical Summary ---
Author Organization Formerly [facility] Address [address] [place] [address] Phone Care Team Providers Care E Merchant Name Role Phone Tersea Rodriguez PA-C Primary Care Provider [phone] Allergies Active Allergy Reactions Criticality Noted Date Comments Ketorolac Palpitations Low 12/29/2023 Medications cetirizine (ZyrTEC) 10 mg tablet Take 10 mg by mouth daily. Active citalopram (CeleXA) 20 mg tablet Take 20 mg by mouth daily at bedtime. Active HYDROcodone-acet aminophen (HYCET) 7.5-325 mg/15 mL SolutionIndicati ons:Cholecystiti s Take 15 mL by mouth every 6 hours as needed for Pain. Max Daily Amount: 60 mL 280 mL 06/02/2021 Active Active Problems Problem Noted Date Diagnosed Date Mild persistent asthma without complication 10/2020 Recurrent major depressive disorder, in full rem ission 03/09/2021 Morbid obesity with body mass index of 40.0-49.9 03/08/2021 Encounters Date Type Department Care Team Description 06/08/2024 External Device Data [facility] Provider, Abstract 06/07/2024 External Device Data [facility] Provider, Abstract 06/04/2024 External Device Data [facility] Provider, Abstract 05/21/2024 External Device Data [facility] Provider, Abstract 04/24/2024 External Device Data [facility] Provider, Abstract 04/23/2024 External Device Data [facility] Provider, Abstract 04/16/2024 External Device Data [facility] Provider, Abstract 04/09/2024 External Device Data [facility] Provider, Abstract from Last 3 Months Family History Medical History Relation Name Comments Colon Cancer Maternal Grandfather Relation Name Status Comments Maternal Grandfather Social History Tobacco Use Types Packs/Day Years Used Date Smoking Tobacco: Never Smokeless Tobacco: Never Alcohol Use Standard Drinks/Week Comments Not Currently 0 (1 standard drink = 0.6 oz pur e alcohol) social Feeling Safe Answer Date Recorded Are you in a relationship wi th someone who hurts you emotionally and/or physically? No 12/29/2023 Comments No Sex and Gender Information Value Date Recorded Sex Assigned at Not on file Legal Sex Female 7:07 AM CDT Gender Identity Not on file Sexual Orientation Not on file Last Filed Vital Signs Vital Sign Reading Time Taken Comments Blood Pressure 107/66 12/29/2023 8:50 AM CDT Pulse 67 12/29/2023 8:50 AM CDT Temperature 36 C (96.8 F) 12/29/2023 8:05 AM CDT Simultaneous filing. User may not have seen previous data. Respiratory Rate 15 12/29/2023 8:50 AM CDT Oxygen Saturation 100% 12/29/2023 8:5 0 AM CDT Inhaled Oxygen Concentration - - Weight 74.8 kg (165 lb) 12/29/2023 6:35 AM CDT Height 172.7 cm (5' 8 ) 12/29/2023 6:35 AM CDT Body Mass Index 25.09 12/29/2023 6:35 AM CDT Plan of Treatment Health Maintenance Due Date Last Done Comments DTAP/TDAP/TD VACCINES (1 - Tdap) 2016 HEPATITIS B VACCINES (1 of 3 - 19+ 3-dose series) 2016 CERVICAL CANCER SCREENING 2018 INFLUENZA VACCINE (#1) 2023 Preventative Visit- Commercial 04/03/2024 HPV VACCINES Aged Out No longer eligi ble based on patient's age to complete this topic Medical Devices Implanted Type Area Anesthesia Technician Device Identifier Shelf Expiration Date Model / Serial / Lot Seamguard Endogia 60 Blk [id number] - [id number] Implanted:Qty : 2 on 03/08/2021 by Angel Prado MD at [facility] N/A: Stomach [employer] 11/19/2023 [id number] / / [id number] Seamguard Endogia 60 Prpl [id number] - [id number] Implanted:Qty : 2 on 03/08/2021 by Angel Prado MD at [facility] N/A: Stomach [employer] 10/06/2023 [id number] / / [id number] Grants Officer Endoclip Iii 5mm W/Cliplogic [id number] - [id number] Implanted:Qty : 1 on 06/02/2021 by Angel Prado MD at [facility] N/A: Abdomen [employer] - COVIDIEN 02/01/2024 [id number] / / [id number] Dental Retainer Dental Description:dental retainer built in the mouth Insurance RX OPT[employer] RX Member Subscriber Plan / Payer (Ef fective 2021-Present) Name:Odessa Gloria Relation to Subscriber:Child Name:Odessa Gloria Subscriber ID:Not on file Payer ID:Not on file Group ID:[id number] Type:RX Commercial Address: [address] [employer] (INTERNAL) [facility] Internal Plans [facility] CHOICE [id number] Advance Directives For more information, please contact: [phone] * Full Code (Latest Code Status on File) Date Activated Date Inactivated Comments 06/02/2021 9:23 AM 06/02/2021 2:40 PM * Full Code Date Activated Date Inactivated Comments 03/08/2021 11:53 AM 03/10/2021 3:38 PM * Full Code Date Activated Date Inactivated Comments 03/08/2021 6:12 AM 03/08/2021 11:53 AM Care Teams E Merchant Relationship Specialty Start Date End Date Teresa Rodriguez PA-C [address] [place] [phone] PCP - General Physician Framing Specialist 05/27/21
--- OUTSIDE RECORDS SUMMARY | 2024-06-17 13:28 | XMS_ITS | Patient Health Record ---
Author Organization [facility] Address [address] [place] [address] Care Team Providers Care Physician Liaison Name Role Phone Peggy Ochoa Unavailable [phone] Dayday LANDA, Lauri Unavailable Unavailable ZZ-Migration, Provider Unavailable Unavailab le Allergies No Known Allergies Reason For Referral No Information Medications Medication SIG (Take, Route, Frequency, Duration) Notes Start Date End Date Status CETIRIZINE HYDROCHLORIDE 10 mg 1 tab(s) orally once a day for 30 day(s) Active Triamcinolone Acetonide 0.1 % 1 per applied topically PRN for 7 day(s) Active SIT (TRADITIONAL) VARIABLE PER SCHEDULE SC PER SCHEDULE for TO BE DETERMINED *Please review for potential replacement for e-prescription and drug interaction check* Active FLUTICASONE PROPIONATE 50 mcg/inh as directed intranasally once a day for 30 day(s) Active Montelukast Sodium 10 MG 1 tab(s) orally once a day for 90 days Active AUVI -Q 0.3 mg as directed intramuscularly once for 1 days Active AEROCHAMBER MDI SPACER - MOUTHPIECE (ADULT) N/A DIRECTED PO PER ASTHMA ACTION PLAN for 30 DAY(S) *Please review for potential replacement for e-prescription and drug interaction check* Active Breo Ellipta 200 MCG-25 MCG/INH 1 PUFF(S) INHALED ONCE A DAY for 30 DAY(S) *Please review and pick correct strength-formulat ion from Medispan options. If intended option is not shown, discontinue and re-order from Quick Search* Active FAMOTIDINE 40 mg 1 tab(s) orally 30 minutes prior to SCIT Active PROAIR HFA 90 MCG/INH 2 PUFF(S) INHALED EVERY 6 HOURS for 30 DAY(S) *Please review for potential replacement for e-prescription and drug interaction check* Active NASAL WASHES N/A DIRECTED INTRANASALLY NEEDED for 30 *Please review for potential replacement for e-prescription and drug interaction check* Active Cetirizine HCl 10 MG 1 tab(s) orally onc e a day for 30 day(s) Active Fluticasone Propionate 50 MCG/ACT as directed intranasally once a day for 30 day(s) Active Auvi-Q 0.3 MG/0.3ML as directed intramuscularly once for 1 days Active PANTOPRAZOLE 40 mg 1 tab(s) orally once a day for 30 days Active TRIAMCINOLONE ACETONIDE TOPICAL 0.1% 1 per applied topically PRN for 7 day(s) Active MONTELUKAST SODIUM 10 mg 1 tab(s) orally once a day for 90 days Active SIT (CLUSTER) VARIABLE PER SCHEDULE SC PER SCHEDULE for TO BE DETERMINED *Please review for potential replacement for e-prescription and drug interaction check* Active BREO ELLIPTA 200 mcg-25 mcg/inh 1 puff(s) inhaled once a day for 30 day(s) Active OLOPATADINE HYDROCHLORIDE 665 MCG/INH 2 SPRAY(S) INTRANASALLY 2 TIMES A DAY for 30 DAY(S) *Please review for potential replacement for e-prescription and drug interaction check* Active Pantoprazole Sodium 40 MG 1 tab(s) orally once a day for 30 days Active Famotidine 40 MG 1 tab(s) orally 30 minutes prior to SCIT Active Immunizations Vaccine Route Administration Date Status Comme nts NOC Flucelevax Quadrivalent Unknown 03/05/2020 Refused NOC Flucelevax Quadrivalent Unknown 05/04/2020 Administ ered Social History Tobacco Use: Social History Observation Description Date Details (start date - stop date) Never Smoker NA - NA Smoking Smart Form: Question Answer Notes Are you a: never smoker Problems Problem Type SNOMED Code ICD Code Onset Dates Problem Status W/U Status Risk Notes Problem Chronic allergic conjunctivitis (81583944) Other chronic allergic conjunctivitis (H10.45) Active confirmed Problem Allergic rhinitis caused by pollen (disorder) (75681134) Allergic rhinitis due to pollen (J30.1) Active confirmed Problem Allergic rhinitis caused by animal hair and dander (121217400864486) Allergic rhinitis due to animal (cat) (dog) hair and dander (J30.81) Active confirmed Problem Allergic rhinitis (95497893) Other allergic rhinitis (J30.89) Active confirmed Problem Chronic sinusitis (08219255) Chronic sinusitis, unspecified (J32.9) Active confirmed Problem Cough (38608204) Cough (R05) Active confirmed Problem Adverse reaction caused by drug (83753543) Adverse effect of other drugs, medicaments and biological substances, initial encounter (T50.995A) Active confirmed Problem Allergic rhinitis caused by pollen (disorder) (54780937) Allergic rhinitis due to pollen (J30.1) Active confirmed Problem Allergic rhinitis caused by animal hair and dander (849872994126318) Allergic rhinitis due to animal (cat) (dog) hair and dander (J30.81) Active confirmed Problem Allergic rhinitis (53276368) Other allergic rhinitis (J30.89) Active confirmed Problem Chronic allergic conjunctivitis (44598682) Other chronic allergic conjunctivitis (H10.45) Active confirmed Problem Eruption of skin (079970122) Rash and other nonspecific skin eruption (R21) Active confirmed Problem Gastro-esophageal reflux disease without esophagitis (021761991) Gastro-esophageal reflux disease without esophagitis (K21.9) Active confirmed Encounters Encounter Location Date Provider Diagnosis [address] [address] 09/16/2023 Provider ZZ-Migration Plan Of Treatment No Information Insurance Providers Payer Name Payer Address Payer Phone Subscriber Number Group Number Insured Name Patient Relationship to Insured Coverage Start Date Coverage End Date [facility] [address] [place] [address] [id number] Josh Faye Child - Insured has Financial Responsibility Medical (General) History Medical History History ICD Code Endometriosis Acid Reflux Interstitial Cystitis Allergic rhinitis due to pollen J30.1 Allergic rhinitis due to animal (cat) (d og) hair and dander J30.81 Other allergic rhinitis J30.89 Other chronic allergic conjunctivitis H1 0.45 Chronic sinusitis, unspecified J32.9 Rash and other nonspecific skin eruption R21 Gastro-esophageal reflux disease without esophagitis K21.9 Surgical History Surgery Date(Month/Year) colonoscopy may 2019 laproscopic surgery for endometriosis 2018
--- OUTSIDE RECORDS SUMMARY | 2024-06-17 13:28 | XMS_ITS ---
Author Organization [facility] Address [address] [place] [address] Care Team Providers Care Patron Attendant Name Role Phone Peggy Ochoa Unavailable [phone] Dayday LANDA, Lauri Unavailable Unavailable ZZ-Migration, Provider Unavailable Unavailab le REASON FOR VISIT [facility] To [facility] Conversion Encounter Medications Medication SIG (Take, Route, Frequency, Duration) Notes Start Date End Date Status Triamcinolone Acetonide 0.1 % 1 per applied topically PRN for 7 day(s) Active Montelukast Sodium 10 MG 1 tab(s) orally once a day for 90 days Active AEROCHAMBER MDI SPACER - MOUTHPIECE [...] discontinue and re-order from Quick Search* Active PROAIR HFA 90 MCG/INH 2 PUFF(S) INHALED EVERY 6 HOURS for 30 DAY(S) *Please review for potential replacement for e-prescription and drug interaction check* Active SIT (TRADITIONAL) VARIABLE PER SCHEDULE SC PER SCHEDULE for TO BE DETERMINED *Please review for potential replacement for e-prescription and drug interaction check* Active SIT (CLUSTER) VARIABLE PER SCHEDULE SC PER SCHEDULE for TO BE DETERMINED *Please review for potential replacement for e-prescription and drug interaction check* Active OLOPATADINE HYDROCHLORIDE 665 MCG/INH 2 SPRAY(S) INTRANASALLY 2 TIMES A DAY for 30 DAY(S) *Please review for potential replacement for e-prescription and drug interaction check* Active Pantoprazole Sodium 40 MG 1 tab(s) orally once a day for 30 days Active Famotidine 40 MG 1 tab(s) orally 30 minutes prior to SCIT Active NASAL WASHES N/A DIRECTED INTRANASALLY NEEDED for 30 *Please review for potential replacement for e-prescription and drug interaction check* Active Cetirizine HCl 10 MG 1 tab(s) orally onc e a day for 30 day(s) Active Fluticasone Propionate 50 MCG/ACT as directed intranasally once a day for 30 day(s) Active Auvi-Q 0.3 MG/0.3ML as directed intramuscularly once for 1 days Active Encounters Encounter Location Date Provider Diagnosis [address] [address] 09/16/2023 Provider ZZ-Migration Plan Of Treatment No Information Progress Notes * Odessa FAYE NDOB:1995 (29 yo F)Acc No.[id number]:09/16/2023 Patient: Fabien Odessa MONCADA N Provider: Gladys Lopez :1995 A ge:28 Y S ex:Female Date:09/16/2023 Address:[address] [place], [place] [id number] Subjective: * Chief Complaints: * 1 . Multum To Medispan Conversion Encounter. * Medical History: * Medications: T aking SIT (CLUSTER) VARIABLE SEE RECORD PER SCHEDULE SC PER SCHEDULE , Notes to Pharmacist: *Please review for potential replacement for e-prescription and drug interaction check*, Taking Pantoprazole Sodium 40 MG Tablet Delayed Release 1 tab(s) orally once a day , Taking Triamcinolone Acetonide 0.1 % Cream 1 per applied topically PRN , Taking Montelukast Sodium 10 MG Tablet 1 tab(s) orally once a day , Taking AEROCHAMBER MDI SPACER - MOUTHPIECE (ADULT) N/A SPACER FOR MDI USE DIRECTED PO PER ASTHMA ACTION PLAN , Notes to Pharmacist: *Please review for potential replacement for e-prescription and drug interaction check*, Taking Breo Ellipta 200 MCG-25 MCG/INH POWDER 1 PUFF(S) INHALED ONCE A DAY , Notes to Pharmacist: *Please review and pick correct strength-formulation from RealMassivean options. If intended option is not shown, discontinue and re-order from Quick Search*, Taking PROAIR HFA 90 MCG/INH AEROSOL 2 PUFF(S) INHALED EVERY 6 HOURS , Notes to Pharmacist: *Please review for potential replacement for e-prescription and drug interaction check*, Taking NASAL WASHES N/A 1 QUART OF STERILIZED TAP WATER OR DISTILLED WATER, 1 TSP NACL, 1 PINCH OF BAKING SODA DIRECTED INTRANASALLY NEEDED , Notes to Pharmacist: *Please review for potential replacement for e-prescription and drug interaction check*, Taking Cetirizine HCl 10 MG Tablet 1 tab(s) orally once a day , Taking Fluticasone Propionate 50 MCG/ACT Suspension as directed intranasally once a day , Taking Auvi-Q 0.3 MG/0.3ML Solution Auto-injector as directed intramuscularly once , Taking OLOPATADINE HYDROCHLORIDE 665 MCG/INH SPRAY 2 SPRAY(S) INTRANASALLY 2 TIMES A DAY , Notes to Pharmacist: *Please review for potential replacement for e-prescription and drug interaction check*, Taking Famotidine 40 MG Tablet 1 tab(s) orally 30 minutes prior to SCIT , Taking SIT (TRADITIONAL) VARIABLE SEE RECORD PER SCHEDULE SC PER SCHEDULE , Notes to Pharmacist: *Please review for potential replacement for e-prescription and drug interaction check* Objective: * Vitals: Assessment: Plan: * Treatment: * Billing Information: * Visit Code: * Procedure Codes: * Electronic signature of Marcos CHEEMA-Migration on 06/17/2024 at 01:27 PM CDT Sign off status: Pending * Provider: Gladys tamez Migration Date: 09/16/2023 Generated for Geetha forde/Nasir/Bianca on: 06/17/2024 01:27 PM CDT
== END 2024-06-17 10:56 | disposition home or self-care (01) ==
PROVIDERS: Visit Provider Obstetrics & Gynecology
DX: N97.9 Female infertility, unspecified (principal)
CPT/HCPCS: 58340; 74740; Q9966